=== PATIENT | male | born 1945 | race Caucasian/White ===

== ENCOUNTER → 2019-12-10 15:32 | Outpatient (BNVA) | payer OTHER, SELFPAY | PROVIDERS: Family Provider Family Medicine; PCP Family Medicine; Referring Provider Family Medicine; Visit Provider Specialist | DX: M25.562 Pain in left knee (principal); M25.561 Pain in right knee | CPT/HCPCS: 73560; 73565 ==

== ENCOUNTER 2021-10-28 15:23 | Observation (INO) | payer OTHER, MEDICARE, SELFPAY ==
[2021-10-28 15:54] VITALS: BP 129/79; PULSE 62; RESP 18; TEMP 36.6; O2SAT 97; BMI 33.6
--- NOTE | 2021-10-28 16:17 | XRR_ITS ---
PROCEDURE INFORMATION: Exam: XR Chest Exam date and time: 10/28/2021 4:31 PM Age: 76 years old Clinical indication: Cough and dyspnea; Prior surgery; Surgery type: Open heart; Additional info: Dyspnea/cough TECHNIQUE: Imaging protocol: XR of the chest. Views: 1 view. COMPARISON: CR Chest 1 [place] [id number] 01/28/2015 12:29 PM FINDINGS: Lungs: Unremarkable. No consolidation. Pleural spaces: Unremarkable. No pleural effusion. No pneumothorax. Heart/Mediastinum: Unremarkable. No cardiomegaly. Bones/joints: Sternotomy wires noted. Visualized osseous structures are intact. XR/XR chest 1V portable [id number] IMPRESSION: No acute findings.
--- NOTE | 2021-10-28 16:48 | ED_ITS ---
HPI - General Adult General: Chief complaint: General Medical Stated complaint: Has a cough Time Seen by Provider: 10/28/21 16:17 Source: patient Mode of arrival: ambulatory Limitations: no limitations History of Present Illness: 76-year-old male presents emergency room with a cough. He had gone to the [place] they would not see him because he a cough until he was screened for COVID and he was referred to the emergency room. He is not had any fever sweats chills cough is nonproductive he denies any chest pain. After arriving here patient was monitored for time and found to be extremely bradycardic on EKG he had a second-degree heart block. He did not have any chest pain he is easily fatigued. He is on a beta-cynthia at this time no change in his dose recently. Onset (ago): day(s) Severity: mild Relieving factors: none Exacerbating factors: none Associated symptoms: Reports cough and weakness; Deny chest pain, confusion, diaphoresis, decreased appetite, dyspnea, fevers/chills, headache(s), malaise, nausea, rash, palpitations, seizures, short of breath, syncope or vomiting Treatments prior to arrival: none Review of Systems Const: Denies: malaise or diaphoresis ENMT: Denies: throat pain, ear or mastoid pain, nasal discharge or nasal congestion Card: Denies: chest pain, palpitations or syncope Resp: Denies: dyspnea GI: Denies: nausea or vomiting : Denies: flank pain, dysuria, urinary frequency or urinary urgency Skin/Breast: Denies: rash Neuro: Denies: headache(s) or confusion PFS ED PFSH: Medical History Draper's cyst of knee Primary osteoarthritis of right knee Social History Smoking and tobacco status: never smoked Alcohol intake: never Physical Exam Const: COMMON NORMALS: no acute distress GENERAL APPEARANCE: cooperative and comfortable ORIENTATION/CONSCIOUSNESS: Yes awake, Yes oriented to person, Yes oriented to place and Yes oriented to time HENMT: COMMON NORMALS: normocephalic, atraumatic and hearing grossly normal bilaterally HEAD & SCALP: normocephalic and atraumatic Neck/C-Spine: COMMON NORMALS: no JVD Resp: COMMON NORMALS: normal respiratory effort, No retractions, No use of accessory muscles and clear to auscultation bilaterally AUSCULTATION: clear to auscultation bilaterally Cardio: COMMON NORMALS: no JVD and regular rhythm RATE: bradycardic RHYTHM: regular rhythm GI: COMMON NORMALS: Soft to palpation and No hepatosplenomegaly present AUSCULTATION: Yes normoactive bowel sounds PALPATION: Yes Soft to palpation, No Tenderness to palpation present (GI), No Guarding due to palpation present (GI) and Yes No hepatosplenomegaly present Extremity: COMMON NORMALS: normal to inspection, capillary refill normal, no clubbing, cyanosis or edema, no calf tenderness and no pedal edema Neuro: SENSORIUM/ORIENTATION: Yes oriented to person, Yes oriented to place and Yes oriented to time Skin: COMMON NORMALS: no rashes or lesions noted GENERAL SKIN EXAM: no rashes or lesions noted Course Vital Signs: Vital signs: Vital Signs Temperature 97.9 F 10/28/21 15:54 Pulse Rate 62 10/28/21 15:54 Respiratory Rate 18 10/28/21 15:54 Blood Pressure 129/79 10/28/21 15:54 Pulse Oximetry 97 10/28/21 15:54 MDM - General Adult Medical Decision Making Patient has significant heart block with bradycardia. We will admit the patient hold his beta-cynthia and observe discussed with cardiology also discussed with hospitalist orders are written Medical Records I reviewed the patient's medical records. Lab Data I reviewed the patient's lab results. : 10/28/21 17:15 10/28/21 17:15 Radiology Impressions Chest X-Ray 10/28/21 16:17 IMPRESSION: No acute findings. Laboratory Results Sodium Cancelled 10/28/21 17:15 Potassium Cancelled 10/28/21 17:15 Chloride Cancelled 10/28/21 17:15 Carbon Dioxide Cancelled 10/28/21 17:15 Anion Gap Cancelled 10/28/21 17:15 BUN Cancelled 10/28/21 17:15 Creatinine Cancelled 10/28/21 17:15 GFR Calculation Cancelled 10/28/21 17:15 Glucose Cancelled 10/28/21 17:15 Calculated Osmolality Cancelled 10/28/21 17:15 Calcium Cancelled 10/28/21 17:15 Total Bilirubin Cancelled 10/28/21 17:15 AST Cancelled 10/28/21 17:15 ALT Cancelled 10/28/21 17:15 Alkaline Phosphatase Cancelled 10/28/21 17:15 Troponin T Baseline Cancelled 10/28/21 17:15 Total Protein Cancelled 10/28/21 17:15 Albumin Cancelled 10/28/21 17:15 Globulin Cancelled 10/28/21 17:15 Discharge Plan Discharge Patient Disposition: Placed in Observation Clinical Impression: Mobitz type 1 second degree AV block Condition: Stable Prescriptions: No Action No Known Home Medications 0RF Referrals: Tod Isidro [Primary Care Provider] - Coding Level of Care Code ED Crop Setting Out Machine Operator for Mattg Brandie
--- NOTE | 2021-10-28 16:49 | ECG_ITS ---
[facility] Test Date: 2021-10-28 Pat Name: Aristeo José Department: Room: Gender: Male Manager Of Production: : 1945 Requested By: Diaz Chavez Order Number: [id number] Justin MD: Joan Ko M.D. Measurements Intervals [place] Rate: 44 P: DC: QRS: -9 QRSD: 90 T: 26 QT: 433 QTc: 374 Interpretive Statements SINUS BRADYCARDIA WITH 2ND DEGREE AV BLOCK, MOBITZ TYPE I (W[place]BACH) SEPTAL MYOCARDIAL INFARCTION , OF INDETERMINATE AGE [40+ ms Q WAVE IN V1/V2] INFERIOR MYOCARDIAL INFARCTION , PROBABLY OLD [40+ ms Q WAVE AND/OR ST/T ABNORMALITY IN II/aVF] CRITICAL TEST RESULT Compared to ECG 01/28/2015 11:34:41 First degree AV block no longer present Myocardial infarct finding still present Electronically Signed On 10-29-2021 7:51:27 CDT by Joan Ko M.D. [id number]
--- NOTE | 2021-10-28 17:19 | P.CONIM_ITS ---
Providers/Reason For Consult Consulting Physician/Specialty*: Oswaldo Carlin MD/ Cardiology Reason for Consult*: Bradycardia Requesting Physician: Dr Garrett Attending Physician: Dr Sanchez Primary Care Provider: Tod Isidro History of Present Illness History of Present Illness Aristeo José is a 76 year old male with past medical history of coronary artery disease and CABG, on propranolol for resting tremors presented to the emergency room mainly for cough. He feels tired at times. Cardiology was consulted as EKG showed bradycardia with heart rates in the 40s and Mobitz type I AV block. Repeat ekg showed possible Mobitz type 2 AV block. Denies chest pain Review of Systems Const: Reports: malaise; Denies: chills or body aches Eyes: Denies: change in vision ENMT: Denies: throat pain Card: Denies: chest pain Resp: Reports: productive cough (white sputum production) GI: Denies: nausea : Denies: flank pain Musc: Denies: neck pain Skin/Breast: Denies: rash Neuro: Denies: headache(s) Psych: Denies: anxiety Endo: Denies: polyuria Colin/Lymph: Denies: easy bruising All/Imm: Denies: urticaria Medications/Allergies Home Medications Medication Instructions Recorded Confirmed Last Taken Type Lantus U-100 Insulin 35 units SUBCUT BID 10/28/21 10/28/21 10/28/21 08:00 History Vitamin D3 4,000 unit PO BEDTIME 10/28/21 10/28/21 10/27/21 21:00 History amlodipine 10 mg tablet 10 mg PO DAILY 10/28/21 10/28/21 10/28/21 08:00 History atorvastatin 20 mg PO BEDTIME 10/28/21 10/28/21 10/27/21 21:00 History erythromycin 0.5 % EYE-BOTH BID 10/28/21 10/28/21 10/28/21 08:00 History finasteride 5 mg tablet 5 mg PO QPM 10/28/21 10/28/21 10/28/21 12:00 History furosemide 10 mg PO QAM 10/28/21 10/28/21 10/28/21 08:00 History glipizide 10 mg tablet See Rx Instructions .ROUTE .COMPLEX 10/28/21 10/28/21 10/28/21 12:00 History isosorbide mononitrate 60 mg 60 mg PO QAM 10/28/21 10/28/21 10/28/21 08:00 History tablet,extended release 24 hr lisinopril 20 mg tablet 20 mg PO BID 10/28/21 10/28/21 10/28/21 08:00 History loratadine 10 mg PO DAILY 10/28/21 10/28/21 10/28/21 08:00 History melatonin 6 mg PO BEDTIME 10/28/21 10/28/21 10/27/21 21:00 History mirabegron 25 mg PO BEDTIME 10/28/21 10/28/21 10/27/21 21:00 History naproxen 500 mg PO BIDWM 10/28/21 10/28/21 10/28/21 08:00 History omega 4-srl-jjn-fish oil 1,000 mg 1 cap PO DAILY 10/28/21 10/28/21 10/28/21 12:00 History (120 mg-180 mg) capsule (Fish Oil) primidone 50 mg tablet 25 mg PO QAM 10/28/21 10/28/21 10/28/21 08:00 History primidone 50 mg tablet 100 mg PO QPM 10/28/21 10/28/21 10/27/21 21:00 History propranolol 60 mg tablet 60 mg PO TID 10/28/21 10/28/21 10/28/21 12:00 History tamsulosin 0.4 mg PO QPM 10/28/21 10/28/21 10/27/21 17:00 History venlafaxine 150 mg 150 mg PO DAILY 10/28/21 10/28/21 10/28/21 08:00 History capsule,extended release 24 hr Allergies Allergy/AdvReac Type Severity Reaction Status Date / Time No Known Allergies Allergy Verified 12/10/19 15:24 PFSH Acute PFSH: Medical History (Updated 10/29/21 @ 09:43 by Oswaldo Carlin M.D) Draper's cyst of knee CAD (coronary artery disease) 3 stents Diabetes HTN (hypertension) Primary osteoarthritis of right knee Resting tremor Surgical History H/O hernia repair S/P CABG (coronary artery bypass graft) 2013 Family History Father Cancer Lung cancer Social History Smoking and tobacco status: never smoked Alcohol intake: never Vitals/I&O/Wt Last Vital Signs Temp 97.9 F 10/28/21 15:54 Pulse 62 10/28/21 15:54 Resp 18 10/28/21 15:54 BP 129/79 10/28/21 15:54 Pulse Ox 97 10/28/21 15:54 Weight last 48 hrs Weight 215 lb Physical Exam Narrative: GENERAL: Patient is alert, awake and oriented x3. [] NECK: No jugular vein distension. [] HEENT: No cyanosis. No icterus. No pallor. [] HEART: Regular S1 and S2. No murmur, rub or gallop. [] LUNGS: Clear to auscultate bilaterally. [] ABDOMEN: Soft, nontender and nondistended. Positive bowel sounds. No guarding, rebound or tenderness. [] CENTRAL NERVOUS SYSTEM: Grossly nonfocal. [] EXTREMITIES: Lower extremities with 1+ edema bilaterally. Pulses palpable in the lower extremities, both dorsalis pedis and posterior tibial. [] Data : 10/29/21 01:15 10/29/21 01:15 A&P Assessment and plan (1) Bradycardia: Status: Acute (2) CAD (coronary artery disease): Status: Acute (3) HTN (hypertension): Status: Acute Plan Patient had presented with cough. Incidentally also found to have bradycardia. EKG showing Mobitz type I and I subsequent EKG showing Mobitz type II. Hold all rate controlling agents including propranolol. Patient is asymptomatic at this time. Telemetry monitoring overnight. No indication for pacemaker at this time. Blood pressure is elevated. Uptitrate antihypertensive regimen. Thank you for involving us with care of this patient. We will continue to follow. Please call with questions. Coding Level of Care Code Acute Director Educational Radio for Shellie Diego Diagnoses Bradycardia R00.1 CAD (coronary artery disease) I25.10 HTN (hypertension) I10
[2021-10-28 17:37] LABS: Basophils % 0.5 %; Eosinophils # 0.3 10^3/uL (0.0-0.8); Eosinophils % 3.2 %; Hematocrit 46.6 % (42.0-52.0); Hemoglobin 15.8 g/dL (11.7-16.6); Lymphocytes % 25.4 %; Mean Corpuscular HGB Conc 33.9 g/dL (30.0-36.0); Mean Corpuscular Hemoglobin 29.9 pg (28.0-34.0); Mean Corpuscular Volume 88.1 fl (80-94); Monocytes # 0.9 10^3/uL (0.2-0.9); Monocytes % 11.2 %; Neutrophils # 4.75 10^3/uL (1.8-7.7); Neutrophils % 59.2 %; Nucleated Red Blood Cells % 0 %; Platelet Count 211 10^3/cmm (130-400); Red Blood Count 5.29 10^6/uL (4.1-5.3); Red Cell Distribution Width 14.6 % (12.1-15.1)
[2021-10-28 17:59] LABS: Slide Review Slide Review Perform
--- NOTE | 2021-10-28 18:11 | P.HP_ITS ---
Providers/Chief Complaint Admitting Physician: Nita Sanchez MD Primary Care Provider: Tod Isidro Chief Complaint: Has a cough History of Present Illness Aristeo José is a 76 year old male with history of CABG, 3 stents in the past, takes propanolol for resting tremors presented today for chief complaint of cough. Patient is stating that for last 2 days he has been experiencing cough, he has not noticed any fever, chest pain, nausea, vomiting but this cough has been bothering him to the point that he had to call his bxnjppsn-lw-lbe to take him to the doctor. Today they went to the ID clinic who requested him to go to the ER to rule out COVID-19 infection because of his cough. Once he arrived in the ER he was diagnosed with severe bradycardia heart rate was between 30 to 40s second-degree type I AV block, at the time my evaluation heart rate was 40-45 systolic blood pressure 129 mmHg, he is chest pain-free no shortness of breath, no signs of confusion. No signs of endorgan damage. Patient lives alone, has never smoked in his life, does not drink alcohol. F airly active for his age Recently he started mirabegron and ophthalmic drops for his red eyes At the time of evaluation he is symptom-free, hemodynamically stable heart rate 45, cardiology has been consulted, discontinue propanolol Review of Systems Const: Reports: malaise; Denies: chills or body aches Eyes: Denies: change in vision ENMT: Denies: throat pain Card: Denies: chest pain Resp: Reports: productive cough (white sputum production) GI: Denies: nausea : Denies: flank pain Musc: Denies: neck pain Skin/Breast: Denies: rash Neuro: Denies: headache(s) Psych: Denies: anxiety Endo: Denies: polyuria Colin/Lymph: Denies: easy bruising All/Imm: Denies: urticaria Medications/Allergies Home Medications Medication Instructions Recorded Confirmed Last Taken Type No Known Home Medications 12/10/19 12/10/19 Unknown History Allergies Allergy/AdvReac Type Severity Reaction Status Date / Time No Known Allergies Allergy Verified 12/10/19 15:24 PFSH Acute PFSH: Medical History Draper's cyst of knee CAD (coronary artery disease) 3 stents Diabetes HTN (hypertension) Primary osteoarthritis of right knee Resting tremor Surgical History H/O hernia repair S/P CABG (coronary artery bypass graft) 2013 Family History (Updated 10/28/21 @ 18:36 by Nita Sanchez MD) Father Cancer Lung cancer Social History Smoking and tobacco status: never smoked Alcohol intake: never Vitals/I&O/Wt Last Vital Signs Temp 97.9 F 10/28/21 15:54 Pulse 62 10/28/21 15:54 Resp 18 10/28/21 15:54 BP 129/79 10/28/21 15:54 Pulse Ox 97 10/28/21 15:54 Weight last 48 hrs Weight 97.522 kg Physical Exam Narrative: Very pleasant cooperative elderly male Currently chest pain-free S1, S2 sinus bradycardia No signs of wheezing crackles or rhonchi Saturating well on room air Bilateral conjunctivitis No active headache No blurry vision No signs of focal deficit Distended abdomen nontender Lower extremity no significant edema Pleasant and cooperative Pupils equal and symmetrical Data : 10/28/21 17:15 10/28/21 17:15 A&P Assessment and plan (1) Bradycardia: Status: Acute (2) Mobitz type 1 second degree AV block: Status: Acute (3) Bronchitis: Status: Acute (4) Redness of both eyes: Status: Acute Plan Asymptomatic bradycardia Mobitz type I Asymptomatic, hemodynamically stable Discontinue propanolol Echo, check TSH Considering coronary disease and history of CABG, would like to go with cardiac stress test, will follow cardiology recommendations We will keep him on cardiac consistent carb diet for now and n.p.o. after midnight Close monitoring on cardiac stepdown floor Will discharge him home on event monitor [facility] is vaccinated for COVID-19 For his cough I would add doxycycline for bronchitis For his red eyes we will add cetirizine and artificial eyedrops Patient is DNR/DNI Patient is not sure whether he would opt for pacemaker if that gets recommended by the telecommunicator supervisor [id number]-py-wee at the bedside Low-dose sliding scale for history of diabetes Resting tremors, discontinue propanolol, he also takes primidone Attestations Medical Necessity Statement*: Anticipating discharge within 48 hours will need work-up for bradycardia Time Spent in Patient Care: 40mins Coding Level of Care Code Acute Cleaning Supervisor for Shellie Diego Diagnoses Bradycardia R00.1 Mobitz type 1 second degree AV block I44.1 Bronchitis J40 Redness of both eyes H57.89
--- NOTE | 2021-10-28 18:27 | USCV_ITS ---
Aristeo José Age: 76 Gender: M : 1945 Exam Date: 10/28/2021 21:36 Ordering Phys: Nita Sanchez MD Technologist: SERENA Exam Location: [facility] – [place] Indication: Bradycardia BP: 131 / 73 HR: 55 Rhythm: Sinus Technical Quality: Adequate MEASUREMENTS (Male / Female) Normal Values 2D ECHO LV Diastolic Diameter PLAX 5.3 cm 4.2 - 5.9 / 3.9 - 5.3 cm LV Systolic Diameter PLAX 1.0 cm IVS Diastolic Thickness 1.3 cm 0.6 - 1.0 / 0.6 - 0.9 cm IVS Systolic Thickness 2.1 cm LVPW Diastolic Thickness 1.7 cm 0.6 - 1.0 / 0.6 - 0.9 cm LVPW Systolic Thickness 3.1 cm LVOT Diameter 1.9 cm LV Ejection Fraction 2D Teich 98.4 % LV Ejection Fraction MOD 2C 57.0 % LV Ejection Fraction 2C AL 56.3 % LA Diameter 4.7 cm LA Width 4.3 cm LA Height 6.8 cm RA Width 3.7 cm RA Height 5.1 cm Aorta at Sinotubular Diameter 3.3 cm IVC Diameter 1.3 cm M-MODE Aortic Annulus Diameter 3.2 cm LA Ao Ratio MM 1.7 MV E Point Septal Separation 0.8 cm DOPPLER AV Peak Velocity 180.8 cm/s LVOT Peak Velocity 110.0 cm/s AV Area Cont Eq vti 1.7 cm squared AV Area Cont Eq pk 1.7 cm squared MV Peak Velocity 106.0 cm/s MV Area PHT 2.3 cm squared Mitral E to A Ratio 0.7 MV E' Velocity 42.5 cm/s Mitral E to MV E' Ratio 12.8 Mitral E to LV E' Lateral Ratio 9.7 Mitral E to LV E' Septal Ratio 18.7 TR Peak Velocity 171.3 cm/s TR Peak Gradient 11.7 mmHg TR Mean Velocity 114.0 cm/s TR Mean Gradient 6.7 mmHg TR Velocity Time Integral 35.3 cm Right Atrial Pressure 10.0 mmHg Pulmonary Artery Systolic Pressu 21.7 mmHg PV Peak Velocity 123.0 cm/s RV Acceleration Time 0.1 s RV Ejection Time 0.3 s RV AcT/ET 0.3 FINDINGS Left Ventricle Normal left ventricular size. LV systolic function is normal with EF of 55-60%. No regional wall motion abnormalities. Grade 1 diastolic dysfunction Right Ventricle The right ventricle is normal in size and function. Right Atrium The right atrium is normal in size. Left Atrium The left atrium is dilated Mitral Valve Mitral annular calcification without significant stenosis or prolapse. There is trace mitral regurgitation. Aortic Valve Aortic valve is thickened without significant stenosis. There is no aortic regurgitation. Tricuspid Valve Structurally normal tricuspid valve without significant stenosis. Trace tricuspid regurgitation. Insufficient TR jet to calculate RVSP Pulmonic Valve Structurally normal pulmonic valve without significant stenosis. There is no pulmonic regurgitation. Pericardium Normal pericardium without effusion. Aorta Normal ascending aorta dimension. IVC CONCLUSIONS LV systolic function is normal with EF of 55-60% Grade 1 diastolic dysfunction Left atrium is dilated Trace mitral regurgitation Compared to prior echocardiogram from 06/04/2014, no significant changes are seen Oswaldo Carlin MD (Electronically Signed) Final Date: 29 Oct 2021 17:11 S
--- NOTE | 2021-10-28 18:28 | ECG_ITS ---
[facility] Test Date: 2021-10-29 Pat Name: Aristeo José Department: Room: 112 Gender: Male Contact Lens Technician: Tristagayatri Dyern : 1945 Requested By: Nita Sanchez Order Number: [id number] Justin MD: Joan Ko M.D. Interpretive Statements NAME OF STUDY: LEXISCAN SESTAMIBI STRESS TEST INDICATION: Bradycardia, chest pain PROCEDURE: At the baseline, the blood pressure was 197/91 mmHg with a heart rate of 62 bpm. The electrocardiogram showed normal sinus rhythm with first-degree AV block, normal axis. Possible old anteroseptal infarct. The Lexiscan was infused over a period of 20 seconds. A total of 0.4 milligrams of Lexiscan was infused. The stress phase was continued for a total of 5 minutes. Heart rate at the end of the stress phase was 71 bpm with a blood pressure of 184/89 mmHg. The EKG at the peak infusion revealed sinus rhythm with no significant ST-T wave changes. The study was terminated due to protocol completion. Sestamibi was injected 20 seconds after the Lexiscan infusion. Blood pressure at the end of the recovery phase was 189/88 mmHg with a heart rate of 71 beats per minute. Frequent isolated PVCs noted in recovery. CONCLUSION: 1. No significant EKG changes with the LexiScan infusion. 2. No LexiScan induced chest pain or cardiac arrhythmia. 3. Normal blood pressure and heart rate response. 4. Sestamibi/sestamibi perfusion scan pending; see separate report. Electronically Signed On 10-29-2021 12:32:20 CDT by Joan Ko M.D. [id number]
--- NOTE | 2021-10-28 18:49 | ECG_ITS ---
[facility] Test Date: 2021-10-28 Pat Name: Aristeo José Department: Room: 111 Gender: Male Manager Integrated: : 1945 Requested By: Diaz Chavez Order Number: [id number] Justin MD: Joan Ko M.D. Measurements Intervals [place] Rate: 55 P: -59 [place]: 297 QRS: -10 QRSD: 84 T: 11 QT: 415 QTc: 397 Interpretive Statements SINUS BRADYCARDIA WITH FIRST DEGREE AV BLOCK SEPTAL MYOCARDIAL INFARCTION , OF INDETERMINATE AGE [40+ ms Q WAVE IN V1/V2] INFERIOR MYOCARDIAL INFARCTION , PROBABLY OLD [40+ ms Q WAVE AND/OR ST/T ABNORMALITY IN II/aVF] Compared to ECG 10/28/2021 16:56:48 First degree AV block now present Myocardial infarct finding still present Electronically Signed On 10-29-2021 7:58:18 CDT by Joan Ko M.D. [email or web address] [email or web address] LLCoh[facility].[employer]/store/[id number]
[2021-10-28 18:50] VITALS: BP 202/82; PULSE 50; RESP 15; O2SAT 97
[2021-10-28 19:00] LABS: Troponin(5th) Baseline 19 ng/L (0-15)
[2021-10-28 19:08] LABS: NT Pro B Type Natriuretic Pept 177 pg/mL (0-450); Procalcitonin 0.03 ng/mL (0-0.5)
[2021-10-28 19:19] LABS: Alanine Aminotransferase 23 U/L (0-41); Alkaline Phosphatase 121 IU/L (40-130); Anion Gap 16.3 (5-19); Aspartate Amino Transferase 20 U/L (0-40); Blood Urea Nitrogen 29 mg/dL (8-23); Calcium 9.3 mg/dL (8.5-10.5); Carbon Dioxide 23 mmol/L (22-29); Chloride 99 mmol/L (98-107); Globulin 3.7 g/dL (1.3-4.6); Glucose 73 mg/dL (65-115); Osmolality Calculated 282 mOsm/kg (285-295); Potassium 4.3 mmol/L (3.5-5.1); Sodium 134 mmol/L (136-145); Total Bilirubin 0.4 mg/dL (0.15-1.2); Total Protein 7.7 g/dL (6.6-8.7)
[2021-10-28 20:00] VITALS: BP 175/70; PULSE 55; RESP 11; TEMP 36.7; O2SAT 97
[2021-10-28] MEDS: enoxaparin 40 mg/0.4 mL Syringe SUBCUT (20:46)
[2021-10-28] MEDS: doxycycline 100 mg Tablet PO (20:46)
[2021-10-28 21:15] LABS: Glucose Point of Care 139 mg/dL (70-110)
[2021-10-28 21:21] VITALS: PULSE 58; RESP 16; O2SAT 95
[2021-10-28 22:00] VITALS: BP 131/73; PULSE 55; PULSE 56; RESP 20; O2SAT 92
[2021-10-28 22:21] LABS: Troponin 5 2HR 16.22 ng/L (0-15)
[2021-10-28 22:26] LABS: Troponin 5 2HR Delta -2.78 ABS# (0-10)
--- NOTE | 2021-10-28 22:49 | ECG_ITS ---
[facility] Test Date: 2021-10-29 Pat Name: Aristeo José Department: Room: 112 Gender: Male Vp Legal Affairs: : 1945 Requested By: Diaz Chavez Order Number: [id number] Justin MD: Oswaldo Carlin M.D. Measurements Intervals [place] Rate: 53 P: TN: QRS: -12 QRSD: 96 T: 1 QT: 399 QTc: 377 Interpretive Statements SINUS BRADYCARDIA WITH 2ND DEGREE AV BLOCK, 2:1 OR MOBITZ TYPE II INFERIOR MYOCARDIAL INFARCTION , PROBABLY OLD [40+ ms Q WAVE AND/OR ST/T ABNORMALITY IN II/aVF] Compared to ECG 10/28/2021 21:07:31 First degree AV block no longer present Myocardial infarct finding still present Electronically Signed On 10-29-2021 17:21:24 CDT by Oswaldo Carlin M.D. [email or web address]/[id number]
[2021-10-28] MEDS: insulin glargine 100 units/1 mL 20 UNIT SUBCUT (23:06)
[2021-10-29] VITALS (10 sets, daily range): BP systolic 136–196; BP diastolic 61–103; PULSE 45–97; RESP 14–22; TEMP 36.6–37.4; O2SAT 88–97
[2021-10-29 01:26] LABS: Basophils % 0.4 %; Eosinophils # 0.3 10^3/uL (0.0-0.8); Eosinophils % 3.5 %; Hematocrit 43.5 % (42.0-52.0); Lymphocytes # 2.4 10^3/uL (0.8-4.8); Lymphocytes % 28.4 %; Mean Corpuscular HGB Conc 34.5 g/dL (30.0-36.0); Mean Corpuscular Hemoglobin 31.1 pg (28.0-34.0); Mean Corpuscular Volume 90.2 fl (80-94); Monocytes # 0.9 10^3/uL (0.2-0.9); Monocytes % 10.5 %; Neutrophils # 4.75 10^3/uL (1.8-7.7); Neutrophils % 56.7 %; Nucleated Red Blood Cells % 0 %; Platelet Count 229 10^3/cmm (130-400); Red Blood Count 4.82 10^6/uL (4.1-5.3); Red Cell Distribution Width 14.6 % (12.1-15.1); White Blood Count 8.4 10^3/uL (4.0-10.0)
[2021-10-29 01:41] LABS: Anion Gap 13.6 (5-19); Blood Urea Nitrogen 28 mg/dL (8-23); Calcium 8.9 mg/dL (8.5-10.5); Carbon Dioxide 25 mmol/L (22-29); Chloride 100 mmol/L (98-107); Glucose 198 mg/dL (65-115); Magnesium 1.9 mg/dL (1.7-2.3); Osmolality Calculated 291 mOsm/kg (285-295); Potassium 3.6 mmol/L (3.5-5.1); Sodium 135 mmol/L (136-145)
[2021-10-29 01:43] LABS: Troponin 5 6HR 21.44 ng/L (0-15)
[2021-10-29 01:49] LABS: Troponin 5 6HR Delta 2.44 ng/L (0-12)
[2021-10-29 06:38] LABS: Glucose Point of Care 136 mg/dL (70-110)
[2021-10-29] MEDS: regadenoson 0.4 Mg/5 ml Syringe IVP (07:46)
--- NOTE | 2021-10-29 09:11 | PC.NURSE ---
Informed nurse BP was high.
[2021-10-29] MEDS: cetirizine 10 mg Tablet PO (09:24)
[2021-10-29] MEDS: doxycycline 100 mg Tablet PO (09:24)
[2021-10-29] MEDS: lisinopril 20 mg Tablet PO (09:24)
[2021-10-29] MEDS: amlodipine 5 mg Tablet PO (09:24)
--- NOTE | 2021-10-29 09:45 | PM.PN ---
Subjective Subjective: Patient is doing well. heart rate is normal Vitals/I&O/Wt Last Vital Signs Temp 98.2 F 10/29/21 09:10 Pulse 61 10/29/21 09:10 Resp 16 10/29/21 09:10 BP 196/103 10/29/21 09:10 Pulse Ox 97 10/29/21 09:10 10/28/21 10/29/21 10/29/21 22:59 06:59 14:59 Intake Total 240 / 240 Balance 240 / 240 Weight last 48 hrs Weight 215 lb Physical Exam Narrative: GENERAL: Patient is alert, awake and oriented x3. [] NECK: No jugular vein distension. [] HEENT: No cyanosis. No icterus. No pallor. [] HEART: Regular S1 and S2. No murmur, rub or gallop. [] LUNGS: Clear to auscultate bilaterally. [] ABDOMEN: Soft, nontender and nondistended. Positive bowel sounds. No guarding, rebound or tenderness. [] CENTRAL NERVOUS SYSTEM: Grossly nonfocal. [] EXTREMITIES: Lower extremities with 1+ edema bilaterally. Pulses palpable in the lower extremities, both dorsalis pedis and posterior tibial. [] Data : 10/29/21 01:15 10/29/21 01:15 A&P Assessment and plan (1) Bradycardia: Status: Resolved (2) CAD (coronary artery disease): (3) HTN (hypertension): Status: Acute Plan Patient had presented with cough. Incidentally also found to have bradycardia. EKG showing Mobitz type I and I subsequent EKG showing Mobitz type II. Hold all rate controlling agents including propranolol. Patient has stayed asymptomatic. Heart rate has improved. No indication for pacemaker at this time. Blood pressure is elevated. Uptitrate antihypertensive regimen. Thank you for involving us with care of this patient. Outpatient follow up. Please call with questions. Attestations Medical Necessity Statement*: Care expected to cross 2 midnights. Coding Level of Care Code Acute Folder Gluer Operator for Shellie Diego Diagnoses Bradycardia R00.1 CAD (coronary artery disease) I25.10 HTN (hypertension) I10
--- NOTE | 2021-10-29 10:28 | PC.CHAP ---
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 visit [] Patient/Family/Request visit [] Outpatient visit [] Follow-up visit [] Physician referral [] Code/Alert [x] Routine visit [] Staff referral [] Actively dying [] Patient sleeping [] Family support [] [] Out of room [] Palliative care [] [x] Receiving care in room [] Pre-surgical visit [] Trauma [] Long length of stay [] ICU visit [] Other: Relational/Emotional Strength [x] Patient feels connected with others/family/visitors/staff [] Distress [] Loneliness/isolation [] Abandonment Spirituality of Patient [x] Person of Karen [] Attends Zoroastrianism of their Karen [x] Believes in Prayer [] Reads Bible or Mandaeism materials [] There are Spiritual issues to be addressed 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 Interventions [x] Prayer [x] Active listening [x] Non-anxious presence [x] Spiritual/emotional support [] Crisis/trauma care [x] Spiritual counseling [] Bereavement support [] Provided bereavement packet [] Provided Bible/devotional materials [] Provided toy/stuffed animal, coloring book to patient or family member [] Provided Communion [] Anointing/Palmer [] Salvation [x] Completed spiritual assessment [] Other: Impact on Illness or Injury [] Angry [] Fearful [x] Anxious [] Often cries [] Exhaustion [] Unable to work [] Unable to attend jew [] Unable to walk/stand [] Unable to read [] Unable to drive [] Unable to eat/drink [] Unable to sleep [] Unable to be with family [] Patient intubated [] Other: Summary Senior had mihaela bauer on doctors report has a good attitude well be going home Time spent with patient 10 mins
--- NOTE | 2021-10-29 11:12 | P.DS_ITS ---
Discharge Providers Date of Admission: 10/28/21 18:29 Date of Discharge: October 29, 2021 Attending Provider at Admission: Nita Sanchez MD Attending Provider at Discharge: Nita Sanchez MD Primary Care Provider: Tod Isidro Diagnoses at Discharge Discharge Diagnosis (1) Bradycardia: Status: Acute (2) CAD (coronary artery disease): Status: Acute Permanent problem details: 3 stents (3) HTN (hypertension): Status: Acute Reason for Visit Reason for Visit: Has a cough Hospital Course Hospital Course 76-year-old gentleman who presented from [place] clinic for chief complaint of productive cough. He denied fever, chest pain, shortness of breath, orthopnea and PND. No previous history of presyncopal or syncopal events. In the ER he was diagnosed with Mobitz type I second-degree AV block, his propranolol was discontinued. Overnight his heart rate improved, heart rate range on telemetry 55-61, cardiology was consulted at the time of admission, patient will be discharged on event monitor, Echo report:-Echo shows normal EF with mild TR Stress test results:-Unremarkable Patient has been hypertensive, added hydralazine, at home he takes amlodipine 10 mg lisinopril 40 mg, propanolol 3 times daily, Physical Exam Narrative: Pleasant cooperative early male No active chest pain S1, S2 sinus bradycardia Abdomen soft visceral obesity Very hard of hearing Nonfocal neuro exam Saturating well on room air Discharge Data Studies Completed and Pending Completed Studies During Hospitalization Category Date Time Status Sestamibi Stress Test Request Routine Exams 10/28/21 18:28 Draft XR chest 1V portable [id number] Stat Exams 10/28/21 16:17 Completed Pending at discharge Category Date Time Status Urinalysis Stat Lab 10/28/21 16:49 Uncollected NM yvette perf SPECT r/s* [id number] Routine Nuc Med 10/29/21 18:28 Taken CV. echo complete* [id number] Routine Ultrasound 10/28/21 18:27 Taken Radiology Impressions Chest X-Ray 10/28/21 16:17 IMPRESSION: No acute findings. Laboratory Results WBC 8.4 10^3/uL (4.0-10.0) 10/29/21 01:15 RBC 4.82 10^6/uL (4.1-5.3) 10/29/21 01:15 Hgb 15.0 g/dL (11.7-16.6) 10/29/21 01:15 Hct 43.5 % (42.0-52.0) 10/29/21 01:15 MCV 90.2 fl (80-94) 10/29/21 01:15 MCH 31.1 pg (28.0-34.0) 10/29/21 01:15 MCHC 34.5 g/dL (30.0-36.0) 10/29/21 01:15 RDW 14.6 % (12.1-15.1) 10/29/21 01:15 Plt Count 229 10^3/cmm (130-400) 10/29/21 01:15 MPV 10.0 fL (7.4-10.4) 10/29/21 01:15 Neut % (Auto) 56.7 % 10/29/21 01:15 Lymph % (Auto) 28.4 % 10/29/21 01:15 [place] % (Auto) 10.5 % 10/29/21 01:15 Eos % (Auto) 3.5 % 10/29/21 01:15 Baso % (Auto) 0.4 % 10/29/21 01:15 Neut # (Auto) 4.75 10^3/uL (1.8-7.7) 10/29/21 01:15 Lymph # (Auto) 2.4 10^3/uL (0.8-4.8) 10/29/21 01:15 [place] # (Auto) 0.9 10^3/uL (0.2-0.9) 10/29/21 01:15 Eos # (Auto) 0.3 10^3/uL (0.0-0.8) 10/29/21 01:15 Baso # (Auto) 0.0 10^3/uL (0.0-0.1) 10/29/21 01:15 Nucleated RBC % (auto) 0 % 10/29/21 01:15 Nucleated RBCs # 0.0 /100WBC 10/29/21 01:15 Sodium 135 mmol/L (136-145) L 10/29/21 01:15 Potassium 3.6 mmol/L (3.5-5.1) 10/29/21 01:15 Chloride 100 mmol/L (98-107) 10/29/21 01:15 Carbon Dioxide 25 mmol/L (22-29) 10/29/21 01:15 Anion Gap 13.6 (5-19) 10/29/21 01:15 BUN 28 mg/dL (8-23) H 10/29/21 01:15 Creatinine 1.1 mg/dL (0.7-1.2) 10/29/21 01:15 GFR Calculation Not Reportable 10/29/21 01:15 Glucose 198 mg/dL (65-115) H 10/29/21 01:15 POC Glucose 136 mg/dL (70-110) H 10/29/21 06:36 Calculated Osmolality 291 mOsm/kg (285-295) 10/29/21 01:15 Calcium 8.9 mg/dL (8.5-10.5) 10/29/21 01:15 Magnesium 1.9 mg/dL (1.7-2.3) 10/29/21 01:15 Total Bilirubin 0.4 mg/dL (0.15-1.2) 10/28/21 18:26 AST 20 U/L (0-40) 10/28/21 18:26 ALT 23 U/L (0-41) 10/28/21 18:26 Alkaline Phosphatase 121 IU/L (40-130) 10/28/21 18:26 Troponin T Baseline 19 ng/L (0-15) H 10/28/21 18:26 Troponin T 120 Minute 16.22 ng/L (0-15) H 10/28/21 21:07 Delta Troponin T -2.78 ABS# (0-10) L 10/28/21 21:07 Troponin T Hi Sens 6Hr 21.44 ng/L (0-15) H 10/29/21 01:15 Troponin T Hi Sens 6Hr Delta 2.44 ng/L (0-12) 10/29/21 01:15 NT-Pro-B Natriuret Pep 177 pg/mL (0-450) 10/28/21 18:26 Total Protein 7.7 g/dL (6.6-8.7) 10/28/21 18:26 Albumin 4.0 g/dL (3.5-5.2) 10/28/21 18:26 Globulin 3.7 g/dL (1.3-4.6) 10/28/21 18:26 Procalcitonin 0.03 ng/mL (0-0.5) 10/28/21 18:26 Procalcitonin Cancelled 10/28/21 18:26 Vitals Last Vital Signs Temp 98.2 F 10/29/21 09:10 Pulse 61 10/29/21 09:10 Resp 16 10/29/21 09:10 BP 196/103 10/29/21 09:10 Pulse Ox 97 10/29/21 09:10 Discharge Plan Discharge Patient Disposition: Home Condition: Stable Prescriptions: New doxycycline hyclate 100 mg tablet 100 mg PO BID 3 Days Qty: 6 0RF Continued furosemide 10 mg PO QAM 0RF primidone 50 mg Tablet 25 mg PO QAM 0RF primidone 50 mg Tablet 100 mg PO QPM 0RF glipizide 10 mg Tablet See Rx Instructions .ROUTE .COMPLEX 0RF Rx Instructions: 10 mg orally at breakfast and lunch Lantus U-100 Insulin 35 units SUBCUT BID 0RF Vitamin D3 4,000 unit PO BEDTIME 0RF atorvastatin 20 mg PO BEDTIME 0RF erythromycin ointment 0.5 % eye-both BID 0RF Rx Instructions: x7d, began 10/26/2021 loratadine 10 mg PO DAILY 0RF melatonin 6 mg PO BEDTIME 0RF mirabegron 25 mg PO BEDTIME 0RF naproxen 500 mg PO BIDWM 0RF tamsulosin 0.4 mg PO QPM 0RF lisinopril 20 mg Tablet 20 mg PO BID 0RF venlafaxine 150 mg Capsule,Extended Release 24hr 150 mg PO DAILY 0RF isosorbide mononitrate 60 mg Tablet Extended Release 24 Hr 60 mg PO QAM 0RF amlodipine 10 mg Tablet 10 mg PO DAILY 0RF finasteride 5 mg Tablet 5 mg PO QPM 0RF Fish Oil 1,000 mg (120 mg-180 mg) Capsule 1 cap PO DAILY 0RF Discontinued propranolol 60 mg Tablet 60 mg PO TID 0RF Discharge Orders: Discharge Order (Routine); Ordered 10/29/21 Ordered By: Nita Sanchez Other Ambulatory Orders: MCT/Event Monitor 30 Days (Routine) Timeframe: 30 Days Facility: [facility] - Location: Radiology Ordered By: Nita Sanchez MCT/Event Monitor 7 Days (Routine) Timeframe: 30 Days Facility: [facility] - Location: Radiology Ordered By: Nita Sanchez Referrals: Oswaldo Carlin M.D [Physician] - 11/06/21 9:45 am (You have a cardiology followup with Dr. Carlin at [facility] on November 06 ar 9:45am You have a appointment at [facility] [place] on This Coming TuesdayNovember 02 at 2:45pm to be fitted with an Event Monitor.) Tod Isidro [Primary Care Provider] - 1-3 days ([facility] will be calling to schedule a hospital followup with Dr. Isidro to be seen in 1 to 3 days. If you don't hear from them by tomorrowafternoon, please give them a call. Thank you) Discharge Diet: Cardiac Discharge Activity: Increase activity as tolerated Patient Instructions: Doxycycline (By mouth) (Acticlate, Adoxa, Avidoxy, Monodox, Doryx), Opioid Safety Activity Restrictions/Additional Instructions: You have a appointment at [facility] on This Coming TuesdayNovember 02 at 2:45pm to be fitted with an Event Monitor. Discharge Attestations 2 Time Spent in Discharge Care*: less than 30 min Quality Metrics Clinical Quality Measures [ No reported AMI, CVA or VTE this stay] Coding Level of Care Code Acute Chg FW DC note Diagnoses Bradycardia R00.1 CAD (coronary artery disease) I25.10 HTN (hypertension) I10
[2021-10-29 11:39] LABS: Glucose Point of Care 256 mg/dL (70-110)
[2021-10-29] MEDS: hyDRALAzine 20 mg/mL INJ 1 mL 10 MG IVP (12:16)
--- NOTE | 2021-10-29 13:12 | DCPLANNER ---
[facility] to [facility] with out success< I did my weekend routine and [facility]
--- NOTE | 2021-10-29 18:28 | NMCV_ITS ---
NM yvette perf SPECT r/s* [id number] Aristeo José Age: 76 Gender: M : 1945 Exam Date: 10/29/2021 06:59 Ordering Phys: Nita Sanchez MD Technologist: PÉREZ Mullins Exam Location: [facility] Indications: CHEST PAIN STRESS TEST Please see separate stress test report in [facility] for full findings IMAGE PROTOCOL Rest/Stress 1 Lexiscan Day Radiopharmaceutical Dose (mCi) Administration Site Administered by Rest: Tc-99m 10.6 IV PÉREZ Hong Sestamibi Stress:Tc-99m 32.9 IV PÉREZ Hong Sestamibi Rest: 29-Oct-2021 60 Discovery 630 Stress: 29-Oct-2021 30 Discovery 630 0.4mg Lexiscan. Images obtained in supine and prone position. SPECT RESULTS Technical Quality: Excellent Raw Data Analysis: Normal Image Corrections: No attenuation or motion correction applied Summed Stress Score: 0 Summed Rest Score: 3 Summed Difference Score: 0 PERFUSION FINDINGS Small sized perfusion of mid to apical inferolateral sen on rest images with improved tracer uptake on stress images. This is suggestive of attenuation artifact. FUNCTIONAL RESULTS (calculated via Gated SPECT) Stress Image LV EF (%): 60 Stress EDV (mL):119 TID: 0.99 Stress ESV (mL):48 FUNCTIONAL FINDINGS: The left ventricle is normal in size. Transient Ischemia Dilatation of 0.99. There is normal left ventricular systolic function. The left ventricular ejection fraction is normal with a value of 60%. There is normal left ventricular wall thickening with no regional wall motion abnormality. Normal end-diastolic and end-systolic volumes. IMPRESSIONS 1. Myocardial perfusion imaging is normal. Attenuation artifact noted in inferolateral wall. 2. Overall left ventricular systolic function is normal without regional wall motion abnormalities, (LVEF=60%). 3. No EKG changes with Lexiscan infusion. Refer to separate report for details. 4. Scan indicates low risk for cardiac events. Joan Ko MD (Electronically Signed) Final Date: 29 Oct 2021 12:36 S
== END 2021-10-29 15:45 | disposition home or self-care (01) ==
LOC: ER 17:50 → CSU 18:07
PROVIDERS: Admitting Provider Internal Medicine; Emergency Provider Family Medicine; Family Provider Family Medicine; PCP Family Medicine; Visit Provider Internal Medicine
DX: I44.1 Atrioventricular block, second degree (principal); R00.1 Bradycardia, unspecified; I25.10 Atherosclerotic heart disease of native coronary artery without angina pectoris; I10 Essential (primary) hypertension; Z95.5 Presence of coronary angioplasty implant and graft; M17.11 Unilateral primary osteoarthritis, right knee; Z95.1 Presence of aortocoronary bypass graft; J40 Bronchitis, not specified as acute or chronic; Z79.4 Long term (current) use of insulin; H57.89 Other specified disorders of eye and adnexa
CPT/HCPCS: 36415; 36416; 71045; 78452; 80048; 80053; 82962; 83735; 83880; 84145; 84484; 85025; 93005; 93017; 93306; 96372; 96374; 99285; A9500; G0378; J0360; J1650; J1815; J2785

== ENCOUNTER → 2021-11-02 14:20 | Outpatient (BNVA) | payer OTHER, MEDICARE, SELFPAY | PROVIDERS: Family Provider Family Medicine; PCP Family Medicine; Visit Provider Internal Medicine Cardiovascular Disease | DX: I44.1 Atrioventricular block, second degree (principal); I44.2 Atrioventricular block, complete; R00.0 Tachycardia, unspecified; R00.1 Bradycardia, unspecified | CPT/HCPCS: 93229 ==

== ENCOUNTER → 2021-11-06 09:18 | Outpatient (BNVA) | payer OTHER, SELFPAY ==
--- NOTE | 2021-11-15 18:57 | W.PM.EVENTAC ---
Event Note Event Note: I was called by the telemetry company to notify me regarding second degree AV block, I called three different numbers and finally got a hold off his daughter in law. I have recommended Mr José to come to the ER for Pacemaker evaluation Mr José did complaint of weakness and lethargy to his famiy ER UPDATED
== END ==
PROVIDERS: Family Provider Family Medicine; PCP Family Medicine; Visit Provider Internal Medicine
DX: I44.1 Atrioventricular block, second degree (principal); I10 Essential (primary) hypertension; E11.9 Type 2 diabetes mellitus without complications; Z79.4 Long term (current) use of insulin
CPT/HCPCS: 99214

== ENCOUNTER 2021-11-15 19:50 | Inpatient (IN) | payer OTHER, MEDICARE, SELFPAY ==
[2021-11-15 20:00] VITALS: BP 179/88; PULSE 76; RESP 18; TEMP 36.9; O2SAT 97
[2021-11-15 20:17] VITALS: BP 138/72; PULSE 67; RESP 18; O2SAT 98
--- NOTE | 2021-11-15 20:17 | XRR_ITS ---
PROCEDURE INFORMATION: Exam: XR Chest Exam date and time: 11/15/2021 8:49 PM Age: 76 years old Clinical indication: Other: Weakness; Prior surgery; Surgery date: 6+ months; Surgery type: Cabg TECHNIQUE: Imaging protocol: XR of the chest. Views: 1 view. COMPARISON: CR XR chest 1V portable [id number] 10/28/2021 4:31 PM FINDINGS: Lungs: Unremarkable. No consolidation. Pleural spaces: Unremarkable. No pleural effusion. No pneumothorax. Heart/Mediastinum: Unremarkable. No cardiomegaly. Bones/joints: Sternotomy wires. XR/XR chest 1V portable [id number] IMPRESSION: Lungs are clear
--- NOTE | 2021-11-15 20:17 | ECG_ITS ---
[facility] Test Date: 2021-11-15 Pat Name: Aristeo José Department: Room: Gender: Male Pharmacy Student: : 1945 Requested By: Vivek Ramos Order Number: [id number] Justin MD: Garcia Moore M.D. Measurements Intervals [place] Rate: 69 P: 25 MI: 293 QRS: -8 QRSD: 93 T: 168 QT: 353 QTc: 378 Interpretive Statements SINUS RHYTHM WITH FIRST DEGREE AV BLOCK INFERIOR MYOCARDIAL INFARCTION , PROBABLY OLD [40+ ms Q WAVE AND/OR ST/T ABNORMALITY IN II/aVF] ANTEROSEPTAL MYOCARDIAL INFARCTION , OF INDETERMINATE AGE [40+ ms Q WAVE IN V1-V4] Compared to ECG 10/29/2021 00:17:12 First degree AV block now present Sinus bradycardia no longer present Myocardial infarct finding still present Electronically Signed On 11-16-2021 16:21:05 CDT by Garcia Moore M.D. [email or web address]
--- NOTE | 2021-11-15 20:20 | ED_ITS ---
HPI - General Adult General: Chief complaint: General Medical Stated complaint: Dr sent due to hear monitor Time Seen by Provider: 11/15/21 19:53 Source: patient History of Present Illness: 76-year-old gentleman who had a loop recorder placed back on 11/02. Hospitalist physician who wrote the order received a call this evening that the patient may be a type II second-degree block. The patient was called and urged to come in. He presents with no specific complaints. He notes that he was more tired this morning, and generally weak. He is not overly short of breath. There is no history of chest pain. Onset (ago): hour(s) Radiation: non-radiation Pain Consistency: other Relieving factors: none Associated symptoms: Reports malaise and weakness (generalized); Deny chest pain, confusion, cough, dyspnea, fevers/chills, headache(s), nausea, short of breath or vomiting Review of Systems Const: Reports: malaise Card: Denies: chest pain Resp: Denies: dyspnea GI: Denies: nausea or vomiting Neuro: Denies: headache(s) or confusion PFSH ED PFSH: Medical History Draper's cyst of knee CAD (coronary artery disease) 3 stents Diabetes HTN (hypertension) Primary osteoarthritis of right knee Redness of both eyes Resting tremor Surgical History H/O hernia repair S/P CABG (coronary artery bypass graft) 2014 Family History Father Cancer Lung cancer Social History Smoking and tobacco status: never smoked Alcohol intake: never Physical Exam Const: GENERAL APPEARANCE: cooperative and frail appearing HENMT: COMMON NORMALS: normocephalic and Normal external nose present HEAD & SCALP: normocephalic FACE & SINUS: normal facial exam and face symmetric NOSE: Normal external nose present Eye: COMMON NORMALS: Equal, round and reactive pupils present PUPIL: Yes Equal, round and reactive pupils present Chest: CHEST: Yes Symmetrical chest wall rise Resp: COMMON NORMALS: normal respiratory effort, No use of accessory muscles and clear to auscultation bilaterally AUSCULTATION: clear to auscultation bilaterally Cardio: COMMON NORMALS: regular rate, regular rhythm and Peripheral pulses 2+ throughout RATE: regular rate RHYTHM: regular rhythm PERIPHERAL PULSES: Peripheral pulses 2+ throughout GI: COMMON NORMALS: Soft to palpation PALPATION: Yes Soft to palpation Extremity: COMMON NORMALS: no pedal edema Neuro: SEMAJ COMA SCALE: document GCS findings Semaj coma scale eye opening: Spontaneous Semaj coma scale verbal response: Orientated Semaj coma scale motor response: Obey commands Semaj coma scale total score: 15 Course Vital Signs: Vital signs: Vital Signs Temperature 98.2 F 11/18/21 08:00 Pulse Rate 89 11/18/21 10:39 Respiratory Rate 20 H 11/18/21 10:39 Blood Pressure 126/68 11/18/21 10:39 Pulse Oximetry 95 11/18/21 10:39 [facility] - General Adult Medical Decision Making 76-year-old gentleman with a history of Holter placement. They were called regarding concern of a second-degree type II heart block. There may have been a short episode of third-degree heart block. Currently, he is in a type I heart block on the monitor, and by EKG. His heart rate is 60-65. Blood pressure is normal. He is awake and talking. CBC is normal. BMP is normal. His phosphorus is 3.8, magnesium is 1.9. Baseline troponin is 25. Chest x-ray is normal. Spoke with cardiology. Recommendations are telemetry observation, and reevaluation in the morning for potential for need for pacemaker placement. Spoke with hospitalist who agrees. Lab Data : 11/18/21 02:11 11/18/21 02:11 Radiology Impressions Chest X-Ray 11/18/21 06:00 IMPRESSION: No acute cardiopulmonary abnormality identified. Laboratory Results WBC 5.8 10^3/uL (4.0-10.0) 11/15/21 20:58 RBC 5.17 10^6/uL (4.1-5.3) 11/15/21 20:58 Hgb 15.8 g/dL (11.7-16.6) 11/15/21 20:58 Hct 46.2 % (42.0-52.0) 11/15/21 20:58 MCV 89.4 fl (80-94) 11/15/21 20:58 MCH 30.6 pg (28.0-34.0) 11/15/21 20:58 MCHC 34.2 g/dL (30.0-36.0) 11/15/21 20:58 RDW 14.2 % (12.1-15.1) 11/15/21 20:58 Plt Count 206 10^3/cmm (130-400) 11/15/21 20:58 MPV 10.3 fL (7.4-10.4) 11/15/21 20:58 Neut % (Auto) 50.8 % 11/15/21 20:58 Lymph % (Auto) 31.3 % 11/15/21 20:58 [place] % (Auto) 13.2 % 11/15/21 20:58 Eos % (Auto) 4.0 % 11/15/21 20:58 Baso % (Auto) 0.5 % 11/15/21 20:58 Neut # (Auto) 2.93 10^3/uL (1.8-7.7) 11/15/21 20:58 Lymph # (Auto) 1.8 10^3/uL (0.8-4.8) 11/15/21 20:58 [place] # (Auto) 0.8 10^3/uL (0.2-0.9) 11/15/21 20:58 Eos # (Auto) 0.2 10^3/uL (0.0-0.8) 11/15/21 20:58 Baso # (Auto) 0.0 10^3/uL (0.0-0.1) 11/15/21 20:58 Nucleated RBC % (auto) 0 % 11/15/21 20:58 Nucleated RBCs # 0.0 /100WBC 11/15/21 20:58 Sodium 133 mmol/L (136-145) L 11/15/21 20:58 Potassium 4.2 mmol/L (3.5-5.1) 11/15/21 20:58 Chloride 98 mmol/L (98-107) 11/15/21 20:58 Carbon Dioxide 25 mmol/L (22-29) 11/15/21 20:58 Anion Gap 14.2 (5-19) 11/15/21 20:58 BUN 26 mg/dL (8-23) H 11/15/21 20:58 Creatinine 1.2 mg/dL (0.7-1.2) 11/15/21 20:58 GFR Calculation Not Reportable 11/15/21 20:58 Glucose 149 mg/dL (65-115) H 11/15/21 20:58 Calculated Osmolality 284 mOsm/kg (285-295) L 11/15/21 20:58 Calcium 9.7 mg/dL (8.5-10.5) 11/15/21 20:58 Phosphorus 3.8 mg/dL (2.5-4.5) 11/15/21 20:58 Magnesium 1.9 mg/dL (1.7-2.3) 11/15/21 20:58 Total Bilirubin 0.4 mg/dL (0.15-1.2) 11/15/21 20:58 AST 23 U/L (0-40) 11/15/21 20:58 ALT 32 U/L (0-41) 11/15/21 20:58 Alkaline Phosphatase 131 IU/L (40-130) H 11/15/21 20:58 Troponin T Baseline 25 ng/L (0-15) H 11/15/21 20:58 NT-Pro-B Natriuret Pep 72 pg/mL (0-450) 11/15/21 20:58 Total Protein 7.0 g/dL (6.6-8.7) 11/15/21 20:58 Albumin 4.3 g/dL (3.5-5.2) 11/15/21 20:58 Globulin 2.7 g/dL (1.3-4.6) 11/15/21 20:58 Discharge Plan Discharge Patient Disposition: Placed in Observation Admit Provider: Linwood Bartlett Clinical Impression: Bradycardia Discharge Diet: Cardiac Discharge Activity: Increase activity as tolerated and Limit activity as instr ucted Coding Level of Care Code ED Powertrain Control Systems Engineer for Mattg Fwd Exam Comprehensive
[2021-11-15 21:03] LABS: Basophils % 0.5 %; Eosinophils # 0.2 10^3/uL (0.0-0.8); Hematocrit 46.2 % (42.0-52.0); Hemoglobin 15.8 g/dL (11.7-16.6); Lymphocytes # 1.8 10^3/uL (0.8-4.8); Lymphocytes % 31.3 %; Mean Corpuscular HGB Conc 34.2 g/dL (30.0-36.0); Mean Corpuscular Hemoglobin 30.6 pg (28.0-34.0); Mean Corpuscular Volume 89.4 fl (80-94); Mean Platelet Volume 10.3 fL (7.4-10.4); Monocytes # 0.8 10^3/uL (0.2-0.9); Monocytes % 13.2 %; Neutrophils # 2.93 10^3/uL (1.8-7.7); Neutrophils % 50.8 %; Nucleated Red Blood Cells % 0 %; Platelet Count 206 10^3/cmm (130-400); Red Blood Count 5.17 10^6/uL (4.1-5.3); Red Cell Distribution Width 14.2 % (12.1-15.1); White Blood Count 5.8 10^3/uL (4.0-10.0)
[2021-11-15 21:26] LABS: Troponin(5th) Baseline 25 ng/L (0-15)
[2021-11-15 21:35] LABS: Alanine Aminotransferase 32 U/L (0-41); Albumin Level 4.3 g/dL (3.5-5.2); Alkaline Phosphatase 131 IU/L (40-130); Anion Gap 14.2 (5-19); Aspartate Amino Transferase 23 U/L (0-40); Blood Urea Nitrogen 26 mg/dL (8-23); Calcium 9.7 mg/dL (8.5-10.5); Carbon Dioxide 25 mmol/L (22-29); Chloride 98 mmol/L (98-107); Globulin 2.7 g/dL (1.3-4.6); Glucose 149 mg/dL (65-115); Magnesium 1.9 mg/dL (1.7-2.3); NT Pro B Type Natriuretic Pept 72 pg/mL (0-450); Osmolality Calculated 284 mOsm/kg (285-295); Phosphorus 3.8 mg/dL (2.5-4.5); Potassium 4.2 mmol/L (3.5-5.1); Sodium 133 mmol/L (136-145); Total Bilirubin 0.4 mg/dL (0.15-1.2)
[2021-11-15 22:00] VITALS: BP 127/72; PULSE 63; RESP 18; O2SAT 97
--- NOTE | 2021-11-15 22:17 | ECG_ITS ---
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 Measurements Intervals [place] Rate: 52 P: SD: QRS: 1 QRSD: 109 T: 125 QT: 409 QTc: 381 Interpretive Statements Sinus bradycardia with second-degree type II AV block and possible third-degree AV block ANTEROSEPTAL MYOCARDIAL INFARCTION , OF INDETERMINATE AGE [40+ ms Q WAVE IN V1-V4] Compared to ECG 11/15/2021 21:04:00 First degree AV block no longer present Myocardial infarct finding still present Electronically Signed On 11-16-2021 16:30:39 CDT by Garcia Moore M.D. [id number]
[2021-11-15 22:42] VITALS: BP 132/77; PULSE 50; PULSE 63; RESP 18; O2SAT 97
--- NOTE | 2021-11-15 22:54 | PM.HP ---
Providers/Chief Complaint Chief Complaint: Dr sent due to heart monitor History of Present Illness Aristeo José is a 76 year old male with past medical history of coronary artery disease status post CABG , status post PCI, was recently discharged from hospital at that time he presented with cough found to be bradycardic with ?heart rate in 30 to 40s , second-degree type I AV block, he was discharged on event monitor, was called today as today on the event monitor, high-grade high-grade AV block was noted (Mobitz type II, with short interval third-degree AV block ). Holter monitor reading of 11/13: Has shown third-degree heart block. when I examined the patient he was complaining of fatigue, denied any chest pain shortness of breath nausea vomiting lightheadedness dizziness. Pertinent imaging studies: X-ray chest: No acute findings EKG: A. fib with slow ventricular response. 'His labs and vitals have been reviewed. Review of Systems General: Reports: 10 or more systems reviewed and unremarkable except in HPI and below Const: Denies: fever(s), chills, body aches, change in appetite or diaphoresis Card: Denies: palpitations, edema, swelling of feet/ankles, dyspnea on exertion, orthopnea or leg pain with exertion Resp: Denies: dyspnea, productive cough, wheezing or pain on inspiration GI: Denies: abdominal pain, nausea, vomiting, diarrhea or constipation : Denies: flank pain or difficulty urinating Musc: Denies: back pain, extremity pain or extremity swelling Neuro: Denies: headache(s), difficulty walking or confusion Medications/Allergies Home Medications Medication Instructions Recorded Confirmed Last Taken Type Lantus U-100 Insulin 35 units SUBCUT BID 10/28/21 11/16/21 11/15/21 08:00 History 35 units Vitamin D3 4,000 unit PO BEDTIME 10/28/21 11/16/21 11/15/21 18:30 History 4000 units amlodipine 10 mg tablet 10 mg PO DAILY 10/28/21 11/16/21 11/15/21 08:00 History 10 mg atorvastatin 20 mg PO BEDTIME 10/28/21 11/16/21 11/14/21 21:00 History 20 mg finasteride 5 mg tablet 5 mg PO QPM 10/28/21 11/16/21 11/15/21 18:30 History 5 mg furosemide 10 mg PO QAM 10/28/21 11/16/21 11/15/21 08:00 History 10 mg glipizide 10 mg tablet 10 mg PO BID 10/28/21 11/16/21 11/15/21 12:00 History 10 mg isosorbide mononitrate 60 mg 60 mg PO QAM 10/28/21 11/16/21 11/15/21 08:00 History tablet,extended release 24 hr 60 mg lisinopril 20 mg tablet 20 mg PO BID 10/28/21 11/16/21 11/15/21 08:00 History 20 mg loratadine 10 mg PO DAILY 10/28/21 11/16/21 11/15/21 08:00 History 10 mg melatonin 6 mg PO BEDTIME 10/28/21 11/16/21 11/14/21 20:30 History 6 mg mirabegron 25 mg PO BEDTIME 10/28/21 11/16/21 11/15/21 18:30 History 25 mg naproxen 500 mg PO BIDWM 10/28/21 11/16/21 11/15/21 08:00 History 500 mg omega 8-xvk-cgv-fish oil 1,000 mg 1 cap PO DAILY 10/28/21 11/16/21 11/15/21 12:00 History (120 mg-180 mg) capsule (Fish Oil) 1 primidone 50 mg tablet 25 mg PO QAM 10/28/21 11/16/21 11/15/21 08:00 History 25 mg primidone 50 mg tablet 100 mg PO QPM 10/28/21 11/16/21 11/14/21 21:00 History tamsulosin 0.4 mg PO QPM 10/28/21 11/16/21 11/15/21 18:30 History 0.4mg venlafaxine 150 mg 150 mg PO DAILY 10/28/21 11/16/21 11/15/21 08:00 History capsule,extended release 24 hr 150 mg Allergies Allergy/AdvReac Type Severity Reaction Status Date / Time morphine Allergy Unknown Unknown Verified 11/06/21 09:48 PFSH Acute PFSH: Medical History (Updated 11/16/21 @ 08:04 by Garcia Moore MD) Draper's cyst of knee CAD (coronary artery disease) 3 stents Diabetes HTN (hypertension) Primary osteoarthritis of right knee Redness of both eyes Resting tremor Surgical History (Updated 11/16/21 @ 08:04 by Garcia Moore MD) H/O hernia repair S/P CABG (coronary artery bypass graft) 2013 Family History Father Cancer Lung cancer Social History Smoking and tobacco status: never smoked Alcohol intake: never Vitals/I&O/Wt Last Vital Signs Temp 98.4 F 11/15/21 20:00 Pulse 76 11/15/21 20:00 Resp 18 11/15/21 20:00 BP 179/88 11/15/21 20:00 Pulse Ox 97 11/15/21 20:00 Weight last 48 hrs Weight 92.986 kg Physical Exam Const: COMMON NORMALS: patient oriented x3 HENMT: COMMON NORMALS: normocephalic and atraumatic HEAD & SCALP: normocephalic and atraumatic EXTERNAL EAR: Yes external ears normal Resp: COMMON NORMALS: clear to auscultation bilaterally EFFORT & INSPECTION: Yes symmetric chest movement AUSCULTATION: clear to auscultation bilaterally Cardio: COMMON NORMALS: regular rate, regular rhythm, S1 normal heart sound present, S2 normal heart sound present, No gallops present (Cardio), No murmurs present (Cardio), No rub (Cardio) and Peripheral pulses 2+ throughout RATE: regular rate RHYTHM: regular rhythm HEART SOUNDS: S1 normal heart sound present and S2 normal heart sound present PERIPHERAL PULSES: Peripheral pulses 2+ throughout GI: COMMON NORMALS: Normal to inspection, nondistended, normoactive bowel sounds present, Soft to palpation, non-tender, No hepatosplenomegaly present and no masses AUSCULTATION: Yes normoactive bowel sounds PALPATION: Yes Soft to palpation and Yes No hepatosplenomegaly present RECTAL EXAM: Yes deferred Extremity: COMMON NORMALS: no clubbing, cyanosis or edema and no pedal edema Neuro: COMMON NORMALS: patient oriented x3 Data : 11/16/21 03:45 11/16/21 03:45 A&P Assessment and plan (1) Bradycardia: Status: Acute (2) Diabetes: Status: Acute (3) HTN (hypertension): Status: Acute (4) Mobitz (type) II atrioventricular block: Status: Acute (5) Complete heart block: Status: Acute Plan 76 year old male with past medical history of coronary artery disease status post CABG , status post PCI. Assessment: Complete heart block Continue telemetry monitoring Patient not on any raine blocking agent. Currently n.p.o. Cardiology on board for [facility] #History of coronary artery disease s/p CABG's/PCI #History of hypertension: Continue amlodipine Continue lisinopril 20 mg p.o. twice daily Continue Imdur Continue Imdur CODE STATUS: Full code DVT prophylaxis on Lovenox Attestations Medical Necessity Statement*: Patient needs to be in hospital for management of CHB. Anticipated length of stay greater than 2 midnight. Coding Level of Care Code Acute Supply Tech for g Fwd Exam Detailed Diagnoses Bradycardia R00.1 Diabetes E11.9 HTN (hypertension) I10 Mobitz (type) II atrioventricular block I44.1 Complete heart block I44.2
[2021-11-16] VITALS (12 sets, daily range): BP systolic 110–171; BP diastolic 69–91; PULSE 53–87; RESP 16–18; TEMP 36.4–36.9; O2SAT 92–97
[2021-11-16] MEDS: hyDRALAzine 25 mg Tablet PO (01:10)
[2021-11-16 02:08] LABS: Add Urine Microscopic? NO; Charge for UA Resulting for Rev
[2021-11-16 02:11] LABS: Bilirubin Urine Neg (Negative); Blood Urine Neg (Negative); Glucose Urine UA Norm (Normal); Ketones Urine Negative (Negative); Leukocyte Esterase Urine Negative (Negative); Nitrate Urine Negative (Negative); Protein Urine Neg (Negative); Specific Gravity, Urine 1.015 (1.005-1.030); Urine Appearance Clear (CLEAR); Urine Color Yellow (Yellow); Urobilinogen Urine Norm (Negative); pH Urine 5 (5-7)
--- NOTE | 2021-11-16 02:17 | ECG_ITS ---
[facility] Test Date: 2021-11-16 Pat Name: Aristeo José Department: Room: 277 Gender: Male Lactation Nurse: : 1945 Requested By: Vivek Ramos Order Number: [id number] Justin MD: Garcia Moore M.D. Measurements Intervals [place] Rate: 50 P: -42 CO: 197 QRS: 0 QRSD: 94 T: 180 QT: 431 QTc: 395 Interpretive Statements SINUS BRADYCARDIA WITH second-degree AV block type I ANTEROSEPTAL MYOCARDIAL INFARCTION , PROBABLY OLD [40+ ms Q WAVE IN V1-V4] Compared to ECG 11/15/2021 22:37:29 Myocardial infarct finding still present Electronically Signed On 11-16-2021 16:31:52 CDT by Garcia Moore M.D. [id number]
[2021-11-16 04:26] LABS: Basophils % 0.5 %; Eosinophils # 0.3 10^3/uL (0.0-0.8); Eosinophils % 4.8 %; Hematocrit 48.8 % (42.0-52.0); Hemoglobin 16.5 g/dL (11.7-16.6); Lymphocytes # 2.2 10^3/uL (0.8-4.8); Lymphocytes % 33.5 %; Mean Corpuscular HGB Conc 33.8 g/dL (30.0-36.0); Mean Corpuscular Hemoglobin 30.2 pg (28.0-34.0); Mean Corpuscular Volume 89.4 fl (80-94); Mean Platelet Volume 10.3 fL (7.4-10.4); Monocytes # 0.8 10^3/uL (0.2-0.9); Monocytes % 12.1 %; Neutrophils # 3.15 10^3/uL (1.8-7.7); Neutrophils % 48.9 %; Nucleated Red Blood Cells % 0 %; Platelet Count 209 10^3/cmm (130-400); Red Blood Count 5.46 10^6/uL (4.1-5.3); Red Cell Distribution Width 14.2 % (12.1-15.1); White Blood Count 6.4 10^3/uL (4.0-10.0)
[2021-11-16 04:40] LABS: Troponin 5 6HR 27.11 ng/L (0-15); Troponin 5 6HR Delta 2.11 ng/L (0-12)
[2021-11-16 04:46] LABS: Blood Urea Nitrogen 24 mg/dL (8-23); Calcium 9.9 mg/dL (8.5-10.5); Carbon Dioxide 25 mmol/L (22-29); Chloride 100 mmol/L (98-107); Glucose 92 mg/dL (65-115); NT Pro B Type Natriuretic Pept 64 pg/mL (0-450); Osmolality Calculated 288 mOsm/kg (285-295); Sodium 137 mmol/L (136-145); Thyroid Stimulating Hormone 6.09 uIU/mL (0.27-4.20)
[2021-11-16 04:47] LABS: Anion Gap 16.1 (5-19); Potassium 4.1 mmol/L (3.5-5.1)
--- NOTE | 2021-11-16 07:00 | ECG_ITS ---
[facility] Test Date: 2021-11-16 Pat Name: Aristeo José Department: Room: 277 Gender: Male Electronic Calibration Technician: : 1945 Requested By: Linwood Bartlett Order Number: [id number] Justin MD: Garcia Moore M.D. Measurements Intervals [place] Rate: 60 P: OR: QRS: -15 QRSD: 105 T: 45 QT: 418 QTc: 419 Interpretive Statements Sinus rhythm with second-degree AV block type I, possible intermittent third-degree heart block MINIMAL VOLTAGE CRITERIA FOR LVH, CONSIDER NORMAL VARIANT [MEETS CRITERIA IN ONE OF: R(aVL), S(V1), R(V5), R(V5/V6)+S(V1)] INFERIOR MYOCARDIAL INFARCTION , PROBABLY OLD [40+ ms Q WAVE AND/OR ST/T ABNORMALITY IN II/aVF] ANTEROSEPTAL MYOCARDIAL INFARCTION , OF INDETERMINATE AGE [40+ ms Q WAVE IN V1-V4] Compared to ECG 11/16/2021 02:44:57 Myocardial infarct finding still present Electronically Signed On 11-16-2021 16:33:29 CDT by Garcia Moore M.D. [email or web address] [facility] Learningun[id number]
--- NOTE | 2021-11-16 08:00 | PM.CONSULT ---
Providers/Reason For Consult Consulting Physician/Specialty*: Cardiovascular medicine Reason for Consult*: High degree AV block Requesting Physician: Hospitalist Attending Physician: Luis Alfredo Bingham History of Present Illness History of Present Illness Aristeo José is a 76 year old male who has been admitted to this hospital on of last month and was discovered to have brief episodes of second-degree AV block type II. There was not enough to warrant pacemaker at that time so he was sent home with an event monitor. Over the last several days the event monitor has discovered some brief episodes of complete heart block. He was called yesterday and asked to come into the hospital. He has been admitted overnight. Indeed the monitor does show brief episodes of third-degree AV block. Patient has had no syncope or presyncope. He states that he is tired all the time . That is about all 1 can get out of him. He does have a history of coronary disease with bypass surgery, BPH, dyslipidemia and diabetes. His most recent echo was a couple weeks ago showing grade 1 diastolic dysfunction and an ejection fraction of 55 to 60%. His stress test which was a nuclear stress test was negative for ischemia last month. His troponins have been negative. He receives his primary care from the CT. Review of Systems Narrative: Review of systems is negative Medications/Allergies Home Medications Medication Instructions Recorded Confirmed Last Taken Type Lantus U-100 Insulin 35 units SUBCUT BID 10/28/21 11/16/21 11/15/21 08:00 History 35 units Vitamin D3 4,000 unit PO BEDTIME 10/28/21 11/16/21 11/15/21 18:30 History 4000 units amlodipine 10 mg tablet 10 mg PO DAILY 10/28/21 11/16/21 11/15/21 08:00 History 10 mg atorvastatin 20 mg PO BEDTIME 10/28/21 11/16/21 11/14/21 21:00 History 20 mg finasteride 5 mg tablet 5 mg PO QPM 10/28/21 11/16/21 11/15/21 18:30 History 5 mg furosemide 10 mg PO QAM 10/28/21 11/16/21 11/15/21 08:00 History 10 mg glipizide 10 mg tablet 10 mg PO BID 10/28/21 11/16/21 11/15/21 12:00 History 10 mg isosorbide mononitrate 60 mg 60 mg PO QAM 10/28/21 11/16/21 11/15/21 08:00 History tablet,extended release 24 hr 60 mg lisinopril 20 mg tablet 20 mg PO BID 10/28/21 11/16/21 11/15/21 08:00 History 20 mg loratadine 10 mg PO DAILY 10/28/21 11/16/21 11/15/21 08:00 History 10 mg melatonin 6 mg PO BEDTIME 10/28/21 11/16/21 11/14/21 20:30 History 6 mg mirabegron 25 mg PO BEDTIME 10/28/21 11/16/21 11/15/21 18:30 History 25 mg naproxen 500 mg PO BIDWM 10/28/21 11/16/21 11/15/21 08:00 History 500 mg omega 3-fnv-hua-fish oil 1,000 mg 1 cap PO DAILY 10/28/21 11/16/21 11/15/21 12:00 History (120 mg-180 mg) capsule (Fish Oil) 1 primidone 50 mg tablet 25 mg PO QAM 10/28/21 11/16/21 11/15/21 08:00 History 25 mg primidone 50 mg tablet 100 mg PO QPM 10/28/21 11/16/21 11/14/21 21:00 History tamsulosin 0.4 mg PO QPM 10/28/21 11/16/21 11/15/21 18:30 History 0.4mg venlafaxine 150 mg 150 mg PO DAILY 10/28/21 11/16/21 11/15/21 08:00 History capsule,extended release 24 hr 150 mg Allergies Allergy/AdvReac Type Severity Reaction Status Date / Time morphine Allergy Unknown Unknown Verified 11/06/21 09:48 PFSH Acute PFSH: Medical History (Updated 11/16/21 @ 08:04 by Garcia Moore MD) Draper's cyst of knee CAD (coronary artery disease) 3 stents Diabetes HTN (hypertension) Primary osteoarthritis of right knee Redness of both eyes Resting tremor Surgical History (Updated 11/16/21 @ 08:04 by Garcia Moore MD) H/O hernia repair S/P CABG (coronary artery bypass graft) 2013 Family History Father Cancer Lung cancer Social History Smoking and tobacco status: never smoked Alcohol intake: never Vitals/I&O/Wt Last Vital Signs Temp 98.3 F 11/16/21 04:00 Pulse 58 L 11/16/21 06:00 Resp 18 11/16/21 04:00 BP 141/71 11/16/21 04:00 Pulse Ox 94 11/16/21 04:00 Weight last 48 hrs Weight 205 lb Physical Exam Narrative: GENERAL: In general he is comfortable. HEENT: Exam within normal limits. NECK: Supple without jugular vein distention. The carotid upstroke is normal without bruits. BACK: Exam normal. LUNGS: Clear. HEART: Regular rate and rhythm. ABDOMEN: Benign without organomegaly or tenderness. EXTREMITIES: No edema. NEUROLOGIC: Exam normal. SKIN: Unremarkable. Data : 11/16/21 03:45 11/16/21 03:45 A&P Assessment and plan (1) Complete heart block: Status: Acute (2) Mobitz (type) II atrioventricular block: Status: Acute (3) Bradycardia: Status: Acute (4) Diabetes: Status: Acute (5) HTN (hypertension): Status: Acute (6) Bronchitis: Status: Acute (7) CAD (coronary artery disease): Status: Acute (8) S/P CABG (coronary artery bypass graft): Status: Acute Plan Patient will need a permanent pacemaker. We will try to get this arranged as soon as possible. Coding Level of Care Code New Pt Acute Automotive Technology Instructor for [facility] Fwd Patient Type New History Detailed Exam Detailed Medical Decision Making Moderate Complexity Diagnoses Complete heart block I44.2 Mobitz (type) II atrioventricular block I44.1 Bradycardia R00.1 Diabetes E11.9 HTN (hypertension) I10 Bronchitis J40 CAD (coronary artery disease) I25.10 S/P CABG (coronary artery bypass graft) Z95.1
[2021-11-16 08:14] LABS: Glucose Point of Care 123 mg/dL (70-110)
[2021-11-16] MEDS: lisinopril 20 mg Tablet PO ×2 (09:42→17:28)
[2021-11-16] MEDS: amlodipine 10 mg Tablet PO (09:42)
[2021-11-16] MEDS: isosorbide mononitrate ER 60 mg Tablet PO (09:42)
[2021-11-16] MEDS: venlafaxine ER (24HR) 150 mg Capsule PO (09:42)
--- NOTE | 2021-11-16 09:51 | PC.CHAP ---
Pastoral Care Encounter/Spiritual Assessment Type of Contact [] Declined general road foreman visit [] Patient/Family/Request visit [] Outpatient visit [] Follow-up visit [] Physician referral [] Code/Alert [x] Routine visit [] Staff referral [] Actively dying [] Patient sleeping [] Family support [] [] Out of room [] Palliative care [] [] Receiving care in room [] Pre-surgical visit [] Trauma [] Long length of stay [] ICU visit [] Other: Relational/Emotional Strength [] Patient feels connected with others/family/visitors/staff [] Distress [] Loneliness/isolation [] Abandonment Spirituality of Patient [x] Person of Karen [] Attends Religious of their Karen [x] Believes in Prayer [] Reads Bible or Methodist materials [] There are Spiritual issues to be addressed Director Hedis Interventions [x] Prayer [x] Active listening [] Non-anxious presence [] Spiritual/emotional support [] Crisis/trauma care [] Spiritual counseling [] Bereavement support [] Provided bereavement packet [] Provided Bible/devotional materials [] Provided toy/stuffed animal, coloring book to patient or family member [] Provided Communion [] Anointing/[place] [] Salvation [x] Completed spiritual assessment [] Other: Impact on Illness or Injury [] Angry [] Fearful [] Anxious [] Often cries [] Exhaustion [] Unable to work [] Unable to attend mandaen [] Unable to walk/stand [] Unable to read [] Unable to drive [] Unable to eat/drink [] Unable to sleep [] Unable to be with family [] Patient intubated [] Other: Summary Time spent with patient 5 min
[2021-11-16 11:48] LABS: Glucose Point of Care 136 mg/dL (70-110)
--- NOTE | 2021-11-16 13:07 | P.PN_ITS ---
Subjective Subjective: Denies chest pain or pressure. No trouble breathing. Vitals/I&O/Wt Last Vital Signs Temp 98.4 F 11/16/21 08:00 Pulse 69 11/16/21 08:00 Resp 16 11/16/21 08:00 BP 171/69 11/16/21 08:00 Pulse Ox 92 11/16/21 08:00 Weight last 48 hrs Weight 92.986 kg Physical Exam Narrative: Family at bedside. Const: COMMON NORMALS: alert GENERAL APPEARANCE: cooperative NUTRITIONAL APPEARANCE: overweight ORIENTATION/CONSCIOUSNESS: Yes awake HENMT: COMMON NORMALS: normocephalic, EAC's normal, Normal external nose present and moist oral mucous membranes HEAD & SCALP: normocephalic NOSE: Normal external nose present EXTERNAL AUDITORY CANAL: EAC's normal Neck/C-Spine: COMMON NORMALS: no meningeal signs Chest: CHEST: Yes Symmetrical chest wall rise Resp: COMMON NORMALS: clear to auscultation bilaterally AUSCULTATION: clear to auscultation bilaterally Cardio: COMMON NORMALS: regular rate and No murmurs present (Cardio) RATE: regular rate and bradycardic GI: COMMON NORMALS: Normal to inspection, nondistended, normoactive bowel sounds present, Soft to palpation and non-tender PALPATION: Yes Soft to palpation Extremity: COMMON NORMALS: no pedal edema Neuro: COMMON NORMALS: moves all extremities SENSORIUM/ORIENTATION: Yes alert MENINGEAL SIGNS: Yes no meningeal signs Psych: COMMON NORMALS: mental status grossly normal Skin: COMMON NORMALS: no wounds RASHES: no rashes Data : 11/16/21 03:45 11/16/21 03:45 A&P Assessment and plan (1) Bradycardia: PPM is recommended by cardiology which is planned for tomorrow. Status: Acute (2) Diabetes: Status: Acute (3) HTN (hypertension): Status: Acute (4) Mobitz (type) II atrioventricular block: Status: Acute (5) Complete heart block: Status: Acute Plan #History of coronary artery disease s/p CABG's/PCI #History of hypertension: Continue amlodipine Continue lisinopril 20 mg p.o. twice daily Continue Imdur CODE STATUS: Full code Attestations Medical Necessity Statement*: Continue admission for assessment and management of high degree AV block. Coding Level of Care Code Acute Senior Reliability Engineer for [facility] Fwd Diagnoses Bradycardia R00.1 Diabetes E11.9 HTN (hypertension) I10 Mobitz (type) II atrioventricular block I44.1 Complete heart block I44.2
[2021-11-16 13:56] LABS: Free T4 Free Thyroxine 0.85 ng/dL (0.82-1.77); T3 Free 3.1 PG/ML (2.0-4.4)
--- NOTE | 2021-11-16 16:22 | PM.CONSULT ---
Providers/Reason For Consult Consulting Physician/Specialty*: ANTONI Velazquez MD/cardiology Reason for Consult*: Consider permanent pacer implantation Requesting Physician: Dr. Carlin Attending Physician: Luis Alfredo Bingham History of Present Illness History of Present Illness Aristeo José is a 76 year old male This patient is admitted to the hospital with features of symptomatic bradycardia. Was found to have high degree intermittent AV block on EKG and on telemetry. I was consulted to consider a permanent pacer implantation on this patient Further details of the history and physical, please refer to the admission history and physical by Dr. Bartlett and to the consultation history and physical by Dr. Moore This patient is right-handed. He has no fever or chills. No bleeding complications. Not on any oral anticoagulants. Kidney function is normal Medications/Allergies Home Medications Medication Instructions Recorded Confirmed Last Taken Type Lantus U-100 Insulin 35 units SUBCUT BID 10/28/21 11/16/21 11/15/21 08:00 History 35 units Vitamin D3 4,000 unit PO BEDTIME 10/28/21 11/16/21 11/15/21 18:30 History 4000 units amlodipine 10 mg tablet 10 mg PO DAILY 10/28/21 11/16/21 11/15/21 08:00 History 10 mg atorvastatin 20 mg PO BEDTIME 10/28/21 11/16/21 11/14/21 21:00 History 20 mg finasteride 5 mg tablet 5 mg PO QPM 10/28/21 11/16/21 11/15/21 18:30 History 5 mg furosemide 10 mg PO QAM 10/28/21 11/16/21 11/15/21 08:00 History 10 mg glipizide 10 mg tablet 10 mg PO BID 10/28/21 11/16/21 11/15/21 12:00 History 10 mg isosorbide mononitrate 60 mg 60 mg PO QAM 10/28/21 11/16/21 11/15/21 08:00 History tablet,extended release 24 hr 60 mg lisinopril 20 mg tablet 20 mg PO BID 10/28/21 11/16/21 11/15/21 08:00 History 20 mg loratadine 10 mg PO DAILY 10/28/21 11/16/21 11/15/21 08:00 History 10 mg melatonin 6 mg PO BEDTIME 10/28/21 11/16/21 11/14/21 20:30 History 6 mg mirabegron 25 mg PO BEDTIME 10/28/21 11/16/21 11/15/21 18:30 History 25 mg naproxen 500 mg PO BIDWM 10/28/21 11/16/21 11/15/21 08:00 History 500 mg omega 9-zki-uux-fish oil 1,000 mg 1 cap PO DAILY 10/28/21 11/16/21 11/15/21 12:00 History (120 mg-180 mg) capsule (Fish Oil) 1 primidone 50 mg tablet 25 mg PO QAM 10/28/21 11/16/21 11/15/21 08:00 History 25 mg primidone 50 mg tablet 100 mg PO QPM 10/28/21 11/16/21 11/14/21 21:00 History tamsulosin 0.4 mg PO QPM 10/28/21 11/16/21 11/15/21 18:30 History 0.4mg venlafaxine 150 mg 150 mg PO DAILY 10/28/21 11/16/21 11/15/21 08:00 History capsule,extended release 24 hr 150 mg Allergies Allergy/AdvReac Type Severity Reaction Status Date / Time morphine Allergy Unknown Unknown Verified 11/06/21 09:48 Current Medications Generic Name Dose Route Start Last Admin Trade Name Geoffq PRN Reason Stop Dose Admin Amlodipine Besylate 10 mg 11/16/21 09:00 11/16/21 09:42 Amlodipine 10 Mg Tablet PO 10 mg DAILY OREN Administration Insulin Human Lispro 0 unit 11/16/21 08:00 11/16/21 11:59 Insulin Lispro 100 Unit/1 Ml SUBCUT Not Given WM&BEDTIME OREN Protocol Isosorbide Mononitrate 60 mg 11/16/21 09:00 11/16/21 09:42 Isosorbide Mononitrate Er 60 Mg Tablet PO 60 mg QAM OREN Administration Lisinopril 20 mg 11/16/21 09:00 11/16/21 09:42 Lisinopril 20 Mg Tablet PO 20 mg BID OREN Administration Venlafaxine HCl 150 mg 11/16/21 09:00 11/16/21 09:42 Venlafaxine Er (24hr) 150 Mg Capsule PO 150 mg DAILY OREN Administration PFSH Acute PFSH: Medical History Draper's cyst of knee CAD (coronary artery disease) 3 stents Diabetes HTN (hypertension) Primary osteoarthritis of right knee Redness of both eyes Resting tremor Surgical History H/O hernia repair S/P CABG (coronary artery bypass graft) 2013 Family History Father Cancer Lung cancer Social History Smoking and tobacco status: never smoked Alcohol intake: never Vitals/I&O/Wt Last Vital Signs Temp 97.5 F L 11/16/21 12:00 Pulse 84 11/16/21 15:04 Resp 16 11/16/21 12:00 BP 128/75 11/16/21 12:00 Pulse Ox 97 11/16/21 12:00 11/16/21 11/16/21 11/16/21 06:59 14:59 22:59 Intake Total 240 / 240 Balance 240 / 240 Weight last 48 hrs Weight 205 lb Physical Exam Narrative: GENERAL: The patient is alert and oriented times three. Not in any acute distress. HEENT: No significant pallor, icterus or lymphadenopathy.Oral cavity: There are no mucous membrane lesions. NECK: Trachea appears to be central. No masses noted. No JVD or thyromegaly appreciated. RESPIRATORY: Chest is symmetrical. No intercostals muscle retraction or any accessory muscle activation. There is no chest wall tenderness. Breath sounds are heard bilaterally. No rales or rhonchi heard. No evidence of any consolidation. BREASTS: Deferred. HEART: The heart sounds are normal. No S3 or S4. No significant murmurs. No pericardial rub ABDOMEN: No vessel pulsations or distention. No tenderness. No organomegaly appreciated. Bowel sounds are normally heard. : Deferred. RECTAL: Deferred. LYMPHATIC: No lymphadenopathy noted in the neck. EXTREMITIES: No edema or cyanosis. No clubbing. MUSCULOSKELETAL: No acute joint deformities or swelling SKIN: There are no significant rashes or ecchymosis NEUROPSYCHIATRIC: The patient is alert and oriented x3. Appears to be in a good mood. No tremors or rigidity noted. Data : 11/16/21 03:45 11/16/21 03:45 A&P Assessment and plan (1) High degree atrioventricular block: For further management of the patient's condition, I agree with the plan to have a permanent pacemaker implantation. This was discussed with the patient detail. The risk of bleeding, hematoma, vascular injury, pneumothorax, infection, renal failure and other concomitant complications were explained in detail. The patient and his son understood this well and consented to proceed. We will go ahead and plan for this procedure tomorrow. Status: Acute (2) Symptomatic bradycardia: As mentioned above. Patient may benefit from a dual-chamber pacemaker for AV synchrony and symptom relief Status: Acute (3) Atherosclerosis of coronary artery of [place] heart without angina pectoris: This patient had a recent myocardial perfusion imaging-on 10/29/2021. He was found to have no evidence of ischemia. Status: Acute Plan We will go ahead and do a chest x-ray as part of the preop evaluation. Schedule for the permanent pacer implantation in the morning. Keep n.p.o. after midnight Based on the clinical progress, further recommendations will be made Coding Level of Care Code Acute Net Application Support Specialist for [facility] Fwd Diagnoses High degree atrioventricular block I44.39 Symptomatic bradycardia R00.1 Atherosclerosis of coronary artery of [place] heart without angina pectoris I25.10
[2021-11-16 16:52] LABS: Glucose Point of Care 196 mg/dL (70-110)
--- NOTE | 2021-11-16 17:10 | PC.NURSE ---
Hold this evenings lovenox dose per Dr. Velazquez, pacemaker placement in am
--- NOTE | 2021-11-16 17:11 | XRR_ITS ---
PROCEDURE INFORMATION: Exam: XR Chest Exam date and time: 11/16/2021 7:23 PM Age: 76 years old Clinical indication: Pre-operative exam; Respiratory screening exam; Additional info: Pre- op, have the patient on the monitor while doing this TECHNIQUE: Imaging protocol: XR of the chest. Views: 2 views. COMPARISON: CR (CHEST, ) 11/15/2021 8:49 PM FINDINGS: Lungs: Hypoinflation and interstitial prominence. Pleural spaces: Poorly defined density overlying the left lung base, which can be better assessed with PA and lateral chest radiographs. Heart/Mediastinum: Cardiac silhouette upper limits of normal size. Bones/joints: Median sternotomy. XR/XR chest 2V insp/exp [id number] IMPRESSION: Poorly defined density overlying the left lung base, which can be better assessed with PA and lateral chest radiographs.
[2021-11-16] MEDS: finasteride 5 mg Tablet PO (17:28)
[2021-11-16] MEDS: insulin lispro 100 unit/1 mL SUBCUT (17:28)
[2021-11-16] MEDS: atorvastatin 40 mg Tablet 20 MG PO (21:41)
[2021-11-16 21:54] LABS: Glucose Point of Care 178 mg/dL (70-110)
[2021-11-16] MEDS: acetaminophen 325 mg Tablet 650 MG PO (22:45)
[2021-11-17] VITALS (10 sets, daily range): BP systolic 101–154; BP diastolic 65–91; PULSE 45–83; RESP 14–18; TEMP 36.4–36.7; O2SAT 92–97
[2021-11-17 03:09] LABS: Basophils % 0.4 %; Eosinophils # 0.3 10^3/uL (0.0-0.8); Eosinophils % 3.5 %; Hematocrit 45.3 % (42.0-52.0); Hemoglobin 15.2 g/dL (11.7-16.6); Lymphocytes # 2.4 10^3/uL (0.8-4.8); Lymphocytes % 29.5 %; Mean Corpuscular HGB Conc 33.6 g/dL (30.0-36.0); Mean Corpuscular Volume 89.5 fl (80-94); Mean Platelet Volume 10.4 fL (7.4-10.4); Monocytes # 1.2 10^3/uL (0.2-0.9); Monocytes % 14.3 %; Neutrophils # 4.31 10^3/uL (1.8-7.7); Neutrophils % 52.2 %; Nucleated Red Blood Cells % 0 %; Platelet Count 219 10^3/cmm (130-400); Red Blood Count 5.06 10^6/uL (4.1-5.3); Red Cell Distribution Width 14.2 % (12.1-15.1); White Blood Count 8.3 10^3/uL (4.0-10.0)
[2021-11-17 03:40] LABS: Anion Gap 14.1 (5-19); Blood Urea Nitrogen 26 mg/dL (8-23); Calcium 9.5 mg/dL (8.5-10.5); Carbon Dioxide 24 mmol/L (22-29); Chloride 100 mmol/L (98-107); Glucose 165 mg/dL (65-115); Osmolality Calculated 286 mOsm/kg (285-295); Potassium 4.1 mmol/L (3.5-5.1); Sodium 134 mmol/L (136-145)
[2021-11-17] MEDS: sodium chloride 0.9% 1,000 ML 75 ML IV ×2 (06:25→19:54)
[2021-11-17] MEDS: isosorbide mononitrate ER 60 mg Tablet PO (06:25)
--- NOTE | 2021-11-17 08:16 | XACV_ITS ---
Exam Room: [facility] Ht: 170 cm Wt: 93 kg BSA: 2.13 m2 Gender: Male : 1945 Any Known Allergies: Morphine Exam Priority: Routine Procedure(s): Procedure Description: Diagnostic procedure Procedure Description: Miscellaneous Procedure Description: Dual Chamber Pacemaker Implant Diagnostic Cath Status: Urgent Diagnostic Findings * A venogram was performed by injecting 20 cc of Omnipaque into the left subclavian vein. The vein was found to be widely patent. And tortuous. No evidence of any obstruction noted. Conclusions 1. Patent subclavian vein on the left side. No evidence of obstruction. Clinical Evaluation EBL: 5mL-10mL Procedural Details Procedure Consent Obtained. Pre-Procedure Time Out. Identified patient by full name and date of as verbalized by the patient/guarantor. Does the consent match the physician's order: Yes. Accurate & Complete Informed Consent: Yes. Inpatient/Outpatient History & Physical on Chart: Yes. If H&P is completed, is and addenduem needed: No; If yes, is the addendum complete: N/A. Visualize and Verify Site with Patient/Guarantor: N/A. Relevant Radiology Images available: N/A. Pre-op teaching completed and patient verbalized understanding. The risks, benefits, and alternatives of sedation and/or procedure were discussed by physician. The patient agrees to continue. Procedure started. PERRLA. Strong, equal hand case management manager bilaterally. Lungs clear x 5 lobes. Correct patient, site and procedure confirmed by cath team. IV Site on Arrival: 20 gauge in the left anticubital. Oxygen started at 2liters/min via nasal canula. bilateral subclavian region was prepped with chloroprep then draped in the usual sterile fashion. Baseline sample Acquired. HR: 74 BPM. O2 sat 98%. Physician arrived. Supplies: Cath pack, micropunture, bovie pen, 2-0 silk, 0 surgilon, 3-0 vicryl, 4-0 vicryl. O2 sat 98%. IV Fluids: 0.9% NaCl at KVO. 0 mL infused prior to labor arbitrator. Pre sponge count: 55. Pre sharps count: 20. Pre instrument count: 15. AP pads applied to pt per Dr Velazquez request. Physician scrubbed in. Time out performed with cath team. Lidocaine 1% infiltrated to Left subclavian area. 20 mL contrast injection was performed for subclavian visualization. Access obtained in left subclavian vein with micropuncture set. Lidocaine 1% infiltrated to Left subclavian area. Incision and pacer pocket made in left subclavian region. Inserted guidewire #1 into left subclavian vein. 2.0 silk used. Lidocaine 1% infiltrated to Left subclavian area. Access obtained in left subclavian vein with micropuncture set. Inserted guidewire #2 into left subclavian vein. Inserted 7 fr. safe sheath into left subclavian vein. Inserted Ventricular lead and tested. V lead screwed in. Safe sheath peeled away. Lead left intact. V lead retested. Ventricular lead sutured into place with surgilon. V lead retested. Inserted 7 fr. safe sheath into left subclavian vein. Inserted Atrial lead and tested. A lead screwed in. A lead retested. A lead retested. Safe sheath peeled away. Lead left intact. A lead retested. Atrial lead sutured into place with surgilon. Generator Lot# [id number]. A Lead Lot# [id number]. V Lead Lot# [id number]. V lead retested. Antibiotic flush used to clean pacer pocket. Generator attached and tested. Generator secured with surgilon. Subcutaneous tissue closed with 3-0 vicryl. Cutaneous tissue closed with 4-0 vicryl. All final counts correct. Dr Velazquez scrubbed out. Post Procedure: Pulses reassessed and unchanged. PERRLA. Strong, equal hand case management manager bilaterally. No VTE prophylaxis required. Medication's Wasted: Lidocaine 1% = 3 mL. Total IV fluids: 150 mL. Contrast type used: Omnipaque 300 mgI/mL, 500 mL bottle. left subclavian pocket dressed per physician order. Shoulder immobilizer in place. Anselmo wrap and 4x4's in place. No bleeding or hematoma noted at left subclavian pocket. Post Procedure: Pulses reassessed and unchanged. Post-op diagnosis: bradycardia, pacermaker placement. Complications: none. Estimated blood loss: 5mL-10mL. Responsiveness - Normal response to verbal stimuli; alert and oriented, PERRLA. Airway - Unaffected, no intervention required; spontaneous ventilation. Circulation: W/N/L, pulses unchanged. Nausea/Vomiting: No. Procedure completed. Patient transferred by bed to [facility]. Vital chart was stopped. Procedure Medications Start: 8:51 AM Stop: 8:51 AM Medication: Ancef Amount: 2 g Route: I.V. Start: 9:03 AM Stop: 9:03 AM Medication: Versed Amount: 1 mg Route: I.V. Start: 9:03 AM Stop: 9:03 AM Medication: Fentanyl Amount: 25 mcg Route: I.V. Start: 9:19 AM Stop: 9:19 AM Medication: Versed Amount: 1 mg Route: I.V. Start: 9:33 AM Stop: 9:33 AM Medication: Versed Amount: 1 mg Route: I.V. Start: 9:33 AM Stop: 9:33 AM Medication: Fentanyl Amount: 12.5 mcg Route: I.V. Start: 10:00 AM Stop: 10:00 AM Medication: Versed Amount: 1 mg Route: I.V. Start: 10:30 AM Stop: 10:30 AM Medication: Fentanyl Amount: 12.5 mcg Route: I.V. Start: 10:33 AM Stop: 10:33 AM Medication: Fentanyl Amount: 50 mcg Route: I.V. I, the attending physician, have reviewed and verified all procedure medications. No History/Risk Factors Hypertension: Yes Dyslipidemia: No Peripheral Arterial Disease (PAD): No Myocardial Infarction (MT): No Obesity: No Renal Disease: No Prior Interventions PCI: Yes CABG: Yes Valve Surgery: No Date of PCI: 08/15/2007 Report Signatures Finalized by Dr Bessie Velazquez MD [facility] on 11/18/2021 12:02 AM
--- NOTE | 2021-11-17 08:35 | PC.NURSE ---
to laboratory apparatus glass blower for pacemaker insertion procedure. ushered via bed. family w/patient.
--- NOTE | 2021-11-17 08:57 | W.PM.OPSUD ---
Surgery/Procedure H&P Update DATE OF PROCEDURE: November 17, 2021 DATE H&P PERFORMED: 11/15/21 H&P UPDATE INFORMATION: I have reviewed H&P completed within last 30 days, I have examined patient prior to procedure and No changes to prior documentation PREOP DIAGNOSIS: Symptomatic bradycardia PRIMARY INDICATION FOR PROCEDURE: intermittent high degree AV block/ bradycardia PLANNED PROCEDURE: Operation Date: 11/17/21 09:10 Proposed Procedures p Pacemaker Insertion(Not Applicable) - Bessie Velazquez MD PATIENT REASSESSED PRIOR TO SEDATION, WITH NO CHANGE NOTED: Yes PHYSICAL EXAM: alert, oriented x 3, clear to auscultation bilaterally and regular rate & rhythm (irregular rhythm) AIRWAY EVAL/ANESTHESIA PLAN: normal airway, see other exam findings, ASA III, Monitored Anesthesia, Local Anesthesia, Risks, benefits & alternatives of sedation and/or procedure discussed and Patient agrees to continue as planned
--- NOTE | 2021-11-17 11:00 | PC.NURSE ---
from laborer wrecking and salvaging pt is awake, oriented. pressure dressing to left upper chest is intact. no hematoma, pain, swelling noted. right radial pulse is palpable. activity restrictions discuss to pt such as not elevation of left arm above head and using left arm to try to reach things. shoulder immobilizer is attached to pt's left arm. vs monitored.
[2021-11-17] MEDS: venlafaxine ER (24HR) 150 mg Capsule PO (11:24)
[2021-11-17] MEDS: amlodipine 10 mg Tablet PO (11:24)
[2021-11-17] MEDS: lisinopril 20 mg Tablet PO ×2 (11:24→17:24)
[2021-11-17] MEDS: insulin lispro 100 unit/1 mL SUBCUT ×2 (13:23→17:24)
--- NOTE | 2021-11-17 13:36 | XRR_ITS ---
PROCEDURE INFORMATION: Exam: XR Chest Exam date and time: 11/17/2021 1:56 PM Age: 76 years old Clinical indication: Device placement; Cardiac pacemaker placement or adjustment; Prior surgery; Surgery date: Post-operative (0-2 days); Additional info: Post pacemaker insertion TECHNIQUE: Imaging protocol: XR of the chest. Views: 1 view. COMPARISON: CR XR chest 2V insp/exp [id number] 11/16/2021 7:23 PM FINDINGS: Tubes, catheters and devices: Atrioventricular pacemaker. Lungs: Mild interstitial prominence, without acute airspace disease. Pleural spaces: No significant pneumothorax or pleural effusion. Heart/Mediastinum: No cardiomegaly. Bones/joints: Median sternotomy. Degenerative change. XR/XR chest 1V portable [id number] IMPRESSION: No postprocedural complication following pacemaker placement.
--- NOTE | 2021-11-17 14:47 | PM.PN ---
Subjective Subjective: Just returned from pacemaker plantation. Reports he is doing well. Pressure. Is not short of breath. Vitals/I&O/Wt Last Vital Signs Temp 97.6 F 11/17/21 11:28 Pulse 72 11/17/21 11:28 Resp 16 11/17/21 11:28 BP 136/78 11/17/21 11:28 Pulse Ox 93 11/17/21 11:28 11/16/21 11/17/21 11/17/21 22:59 06:59 14:59 Intake Total 240 / 480 120 / 120 Output Total 480 / 480 Balance -240 / 0 120 / 120 Weight last 48 hrs Weight 92.986 kg Physical Exam Narrative: Family at bedside. Const: COMMON NORMALS: alert GENERAL APPEARANCE: cooperative NUTRITIONAL APPEARANCE: overweight ORIENTATION/CONSCIOUSNESS: Yes awake HENMT: COMMON NORMALS: normocephalic, EAC's normal, Normal external nose present and moist oral mucous membranes HEAD & SCALP: normocephalic NOSE: Normal external nose present EXTERNAL AUDITORY CANAL: EAC's normal Neck/C-Spine: COMMON NORMALS: no meningeal signs Chest: CHEST: Yes Symmetrical chest wall rise Resp: COMMON NORMALS: clear to auscultation bilaterally AUSCULTATION: clear to auscultation bilaterally Cardio: COMMON NORMALS: regular rate and No murmurs present (Cardio) RATE: regular rate GI: COMMON NORMALS: Normal to inspection, nondistended, normoactive bowel sounds present, Soft to palpation and non-tender PALPATION: Yes Soft to palpation Extremity: COMMON NORMALS: no pedal edema OTHER: RUE immobilizer in place. Neuro: COMMON NORMALS: moves all extremities SENSORIUM/ORIENTATION: Yes alert MENINGEAL SIGNS: Yes no meningeal signs Psych: COMMON NORMALS: mental status grossly normal Skin: COMMON NORMALS: no wounds RASHES: no rashes Data : 11/17/21 02:50 11/17/21 02:50 A&P Assessment and plan (1) Bradycardia: Pacemaker implantation today. Paced rhythm on the monitor. LUE immobilizer in place. Status: Acute (2) Diabetes: Status: Acute (3) HTN (hypertension): Status: Acute (4) Mobitz (type) II atrioventricular block: Status: Acute (5) Complete heart block: Status: Acute Plan Subclinical hypothyroidism: TSH elevation with normal T4 and T3. #History of coronary artery disease s/p CABG's/PCI #History of hypertension: Continue amlodipine Continue lisinopril 20 mg p.o. twice daily Continue Imdur CODE STATUS: Full code DVT prophylaxis on Lovenox Attestations Medical Necessity Statement*: Continue hospitalization for post pacemaker implantation care angiomata with a high-grade AV block. Coding Level of Care Code Acute Source Inspector for [facility] Fwd Exam Comprehensive Diagnoses Bradycardia R00.1 Diabetes E11.9 HTN (hypertension) I10 Mobitz (type) II atrioventricular block I44.1 Complete heart block I44.2
[2021-11-17] MEDS: acetaminophen 325 mg Tablet 650 MG PO ×2 (14:58→19:59)
[2021-11-17 16:56] LABS: Glucose Point of Care 199 mg/dL (70-110)
[2021-11-17 16:56] LABS: Glucose Point of Care 208 mg/dL (70-110)
[2021-11-17] MEDS: finasteride 5 mg Tablet PO (17:24)
[2021-11-17] MEDS: atorvastatin 40 mg Tablet 20 MG PO (19:55)
--- NOTE | 2021-11-17 21:57 | PC.NURSE ---
Addendum entered by Rocío Santo RN 11/17/21 22:03: Dr. Velazquez ordered to hold Lovenox and order compression stockings. Original Note: Unable to get ahold of Dr. Velazquez. Per hospitalist, hold 1700 Lovenox.
--- NOTE | 2021-11-17 22:07 | PM.OP ---
Operative Report Date of procedure: November 17, 2021 Pre-op diagnosis: Preop Diagnosis Symptomatic bradycardia Procedure: LOCATION: [] PREOPERATIVE DIAGNOSES: Intermittent high degree AV block/symptomatic bradycardia POSTOPERATIVE DIAGNOSES: Same. COMPLICATIONS: None. ESTIMATED BLOOD LOSS: Around 5 milliliters. BRIEF HISTORY: This is a 76-year-old white male with a history of high blood pressure, dyslipidemia, atherosclerotic heart disease, status post coronary bypass surgery, presented with episodes of dizziness/weakness/near syncopal episodes. He was found to have episodes of secondary heart block and high degree AV block on the event monitor. He had a previous hospital admission for symptomatic bradycardia. In view of his symptoms and the event monitor evidence of intermittent high degree AV block, in order to further manage his condition, a permanent pacemaker implantation was requested. A dual chamber permanent pacemaker implantation was recommended for AV synchrony and symptom relief The procedure was explained to the patient in detail with the risks and benefits. The risks of bleeding, hematoma, vascular injury, infection, pneumothorax, myocardial perforation and other concomitant complications were explained in detail, which the patient understood well and consented to proceed. PROCEDURE DESCRIPTION: The patient was brought to the Cardiac Catheterization Lab. The left and the right side of the neck and the subclavian area were cleaned and draped in a sterile fashion. 1% Xylocaine was used as the local anesthetic agent. [Left] subclavian venogram was performed by injecting 20 milliliters of Omnipaque through the left antecubital vein. A [left] subclavian venous access was obtained using a micropuncture needle system, under venographic guidance. . A two-inch long incision was made 2.0 centimeters below the midclavicular region. By sharp and blunt dissection, a pacemaker pocket was made. A second venous access was obtained using another micropuncture needle system. Over the first guidewire, a 7-Maldivian venous sheath with dilator was advanced. The venous dilator and the guidewire were taken out. A screw-in ventricular lead was advanced through the venous sheath and was positioned towards the right ventricle. Under fluoroscopic guidance, the ventricular lead was positioned toward the right ventricular apex. Good pacing and sensing thresholds were obtained. The lead was secured to the endocardium by advancing the helix. The stability of the lead was tested by gentle twisting movements and also by asking the patient to take some deep breaths and cough. The venous sheath was peeled off, at this time. The lead was secured to the pectoralis fascia, by suturing with 1-0 Surgilon. Over the second guidewire, another 7-Maldivian venous sheath with dilator was advanced. The dilator and the guidewire were taken out. Under fluoroscopic guidance, an atrial lead (Medtronic), was advanced and positioned toward the right atrium. The lead was positioned in the right atrial appendage. Good pacing and sensing thresholds were obtained. The lead was secured to the endocardium by advancing the helix. Stability of the lead was tested by gentle twisting movements and also by asking the patient to take some deep breaths and cough. The venous sheath was peeled off, at this time. The lead was secured to the pectoralis fascia by suturing with 0-Surgilon. The pacemaker pocket was copiously irrigated with vancomycin solution. Complete hemostasis was achieved. Sponge counts were confirmed. The leads were attached to a Medtronic generator. The leads were positioned behind the generator and the generator was attached to the pectoralis fascia by suturing with 0-Surgilon. The pocket was closed in layers. Skin was approximated using 4-0 Vicryl. IMPLANTED DEVICES: ATRIAL LEAD: Model number: 5076/[id number] Serial number: [id number] Make: Medtronic VENTRICULAR LEAD: Model number: 5076/58 Serial number: [id number] Make: Medtronic GENERATOR Brand: Sheri XT DR LINK LizabethToribiopaul Model number: [id number] Serial number: [id number] Make: Medtronic IMPLANTATION DATA: With the pacing system analyzer, the R wave sensing was 8.0 millivolts with a lead impedance of 750 and a pacing threshold was 0.5 volts at 0.5 milliseconds. In the atrium, the sensing was 2.5 millivolts with a lead impedance of 550 ohms and a pacing threshold was 0.7 volts at 0.5 milliseconds. Through the device, the R-wave sensing was 7.8 millivolts with a lead impedance of 720 and a pacing threshold was 0.6 volts at 0.4 milliseconds. The atrial sensing was 3.0 millivolts with a lead impedance of 520 ohms and a pacing threshold of 0.5 volts at 0.4 milliseconds. The pacemaker was set for AAIR/DDDR mode with upper rate of 130 and a lower rate of 60. A pressure dressing was applied over the pacemaker site. The patient was transferred to the Medical Floor in stable condition. A chest x-ray was ordered to confirm the lead position and also to rule out any pneumothorax.
[2021-11-18] VITALS: BP 107/60; PULSE 84; RESP 20; TEMP 36.7; O2SAT 96
[2021-11-18 02:33] LABS: Basophils % 0.4 %; Eosinophils # 0.2 10^3/uL (0.0-0.8); Hematocrit 45.4 % (42.0-52.0); Hemoglobin 15.8 g/dL (11.7-16.6); Lymphocytes # 1.8 10^3/uL (0.8-4.8); Lymphocytes % 22.4 %; Mean Corpuscular HGB Conc 34.8 g/dL (30.0-36.0); Mean Corpuscular Hemoglobin 29.9 pg (28.0-34.0); Mean Platelet Volume 10.2 fL (7.4-10.4); Monocytes # 1.2 10^3/uL (0.2-0.9); Monocytes % 14.2 %; Neutrophils # 4.86 10^3/uL (1.8-7.7); Neutrophils % 59.9 %; Nucleated Red Blood Cells % 0 %; Platelet Count 209 10^3/cmm (130-400); Red Blood Count 5.28 10^6/uL (4.1-5.3); Red Cell Distribution Width 13.7 % (12.1-15.1); White Blood Count 8.1 10^3/uL (4.0-10.0)
[2021-11-18 02:57] LABS: Anion Gap 17.4 (5-19); Blood Urea Nitrogen 24 mg/dL (8-23); Calcium 9.7 mg/dL (8.5-10.5); Carbon Dioxide 20 mmol/L (22-29); Chloride 100 mmol/L (98-107); Glucose 228 mg/dL (65-115); Osmolality Calculated 287 mOsm/kg (285-295); Potassium 4.4 mmol/L (3.5-5.1); Sodium 133 mmol/L (136-145)
[2021-11-18 04:00] VITALS: BP 112/83; PULSE 76; RESP 16; TEMP -12.7; TEMP 9; O2SAT 96
[2021-11-18] MEDS: isosorbide mononitrate ER 60 mg Tablet PO (04:31)
[2021-11-18 05:25] VITALS: PULSE 71
--- NOTE | 2021-11-18 06:00 | XRR_ITS ---
PROCEDURE INFORMATION: Exam: XR Chest Exam date and time: 11/18/2021 5:41 AM Age: 76 years old Clinical indication: Device placement; Cardiac pacemaker lead placement or adjustment; Prior surgery; Surgery type: Openheart; Additional info: Post permanent pacemaker placement; Visualize lead tip TECHNIQUE: Imaging protocol: XR of the chest. Views: 1 view. COMPARISON: CR XR chest 1V portable [id number] 11/17/2021 1:56 PM FINDINGS: Tubes, catheters and devices: Cardiac device noted overlying the left chest. Lungs: The lung parenchyma is clear. Pleural spaces: No pneumothorax. No pleural effusion. Heart/Mediastinum: The cardiomediastinal silhouette is within normal limits. Bones/joints: Median sternotomy wires noted. XR/XR chest 1V [id number] IMPRESSION: No acute cardiopulmonary abnormality identified.
--- NOTE | 2021-11-18 06:00 | ECG_ITS ---
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 Measurements Intervals [place] Rate: 76 P: 26 [place]: 186 QRS: -26 QRSD: 180 T: 74 QT: 446 QTc: 503 Interpretive Statements ELECTRONIC VENTRICULAR PACEMAKER ABNORMAL RHYTHM ECG Compared to ECG 11/16/2021 06:24:13 Myocardial infarct finding no longer present Electronically Signed On 11-18-2021 20:18:07 CDT by Bessie Velazquez M.D. [id number]
[2021-11-18] MEDS: acetaminophen 325 mg Tablet 650 MG PO (06:20)
[2021-11-18 08:00] VITALS: BP 163/80; PULSE 72; RESP 16; TEMP 36.8; O2SAT 94
[2021-11-18 08:43] VITALS: PULSE 89; O2SAT 95
[2021-11-18] MEDS: lisinopril 20 mg Tablet PO (09:08)
[2021-11-18] MEDS: venlafaxine ER (24HR) 150 mg Capsule PO (09:08)
[2021-11-18] MEDS: amlodipine 10 mg Tablet PO (09:08)
[2021-11-18] MEDS: insulin lispro 100 unit/1 mL SUBCUT (09:09)
--- NOTE | 2021-11-18 10:37 | PM.DCS ---
Discharge Providers Date of Admission: 11/15/21 22:42 Date of Discharge: November 18, 2021 Attending Provider at Admission: Linwood Bartlett MD Attending Provider at Discharge: Luis Alfredo Bingham Diagnoses at Discharge Discharge Diagnosis (1) Bradycardia: Status: Acute (2) Diabetes: Status: Acute (3) HTN (hypertension): Status: Acute (4) Mobitz (type) II atrioventricular block: Status: Acute (5) Complete heart block: Status: Acute Reason for Visit Reason for Visit: Dr sent due to heart monitor Hospital Course Hospital Course Pleasant 76-year-old gentleman with history of CAD, status post CABG, PCI, was sent in for evaluation due to bradycardia and heart block on heart monitor with noted high-grade AV block, Mobitz 2, short intervals of third-degree block, underwent additional assessment including cardiology, with recommendation for pacemaker placement, which was done uneventfully on 11/17. He is asked to follow-up with cardiology in office in 1 week for pacemaker check. Incidentally noted subclinical hypothyroidism, with TSH elevation to 6.09, but with normal free T4 and free T3. Please follow-up thyroid function in 3 weeks. Continue to optimize risk factors of cardiovascular disease. Physical Exam Narrative: Sitting up, having breakfast. Reports he is feeling great, denies any complaints, would like to go home. Const: COMMON NORMALS: alert GENERAL APPEARANCE: cooperative NUTRITIONAL APPEARANCE: overweight ORIENTATION/CONSCIOUSNESS: Yes awake HENMT: COMMON NORMALS: normocephalic, EAC's normal, Normal external nose present and moist oral mucous membranes HEAD & SCALP: normocephalic NOSE: Normal external nose present EXTERNAL AUDITORY CANAL: EAC's normal Neck/C-Spine: COMMON NORMALS: no meningeal signs Chest: CHEST: Yes Symmetrical chest wall rise OTHER: PPM L chest Resp: COMMON NORMALS: clear to auscultation bilaterally AUSCULTATION: clear to auscultation bilaterally Cardio: COMMON NORMALS: regular rate and No murmurs present (Cardio) RATE: regular rate GI: COMMON NORMALS: Normal to inspection, nondistended, normoactive bowel sounds present, Soft to palpation and non-tender PALPATION: Yes Soft to palpation Extremity: COMMON NORMALS: no pedal edema OTHER: LUE immobilizer in place. 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 Laboratory Results WBC 8.1 10^3/uL (4.0-10.0) 11/18/21 02:11 RBC 5.28 10^6/uL (4.1-5.3) 11/18/21 02:11 Hgb 15.8 g/dL (11.7-16.6) 11/18/21 02:11 Hct 45.4 % (42.0-52.0) 11/18/21 02:11 MCV 86.0 fl (80-94) 11/18/21 02:11 MCH 29.9 pg (28.0-34.0) 11/18/21 02:11 MCHC 34.8 g/dL (30.0-36.0) 11/18/21 02:11 RDW 13.7 % (12.1-15.1) 11/18/21 02:11 Plt Count 209 10^3/cmm (130-400) 11/18/21 02:11 MPV 10.2 fL (7.4-10.4) 11/18/21 02:11 Neut % (Auto) 59.9 % 11/18/21 02:11 Lymph % (Auto) 22.4 % 11/18/21 02:11 [place] % (Auto) 14.2 % 11/18/21 02:11 Eos % (Auto) 3.0 % 11/18/21 02:11 Baso % (Auto) 0.4 % 11/18/21 02:11 Neut # (Auto) 4.86 10^3/uL (1.8-7.7) 11/18/21 02:11 Lymph # (Auto) 1.8 10^3/uL (0.8-4.8) 11/18/21 02:11 [place] # (Auto) 1.2 10^3/uL (0.2-0.9) H 11/18/21 02:11 Eos # (Auto) 0.2 10^3/uL (0.0-0.8) 11/18/21 02:11 Baso # (Auto) 0.0 10^3/uL (0.0-0.1) 11/18/21 02:11 Nucleated RBC % (auto) 0 % 11/18/21 02:11 Nucleated RBCs # 0.0 /100WBC 11/18/21 02:11 Sodium 133 mmol/L (136-145) L 11/18/21 02:11 Potassium 4.4 mmol/L (3.5-5.1) 11/18/21 02:11 Chloride 100 mmol/L (98-107) 11/18/21 02:11 Carbon Dioxide 20 mmol/L (22-29) L 11/18/21 02:11 Anion Gap 17.4 (5-19) 11/18/21 02:11 BUN 24 mg/dL (8-23) H 11/18/21 02:11 Creatinine 1.0 mg/dL (0.7-1.2) 11/18/21 02:11 GFR Calculation Not Reportable 11/18/21 02:11 Glucose 228 mg/dL (65-115) H 11/18/21 02:11 POC Glucose 199 mg/dL (70-110) H 11/17/21 16:49 Calculated Osmolality 287 mOsm/kg (285-295) 11/18/21 02:11 Calcium 9.7 mg/dL (8.5-10.5) 11/18/21 02:11 Phosphorus 3.8 mg/dL (2.5-4.5) 11/15/21 20:58 Magnesium 2.0 mg/dL (1.7-2.3) 11/16/21 03:45 Total Bilirubin 0.4 mg/dL (0.15-1.2) 11/15/21 20:58 AST 23 U/L (0-40) 11/15/21 20:58 ALT 32 U/L (0-41) 11/15/21 20:58 Alkaline Phosphatase 131 IU/L (40-130) H 11/15/21 20:58 Troponin T Baseline 25 ng/L (0-15) H 11/15/21 20:58 Troponin T 120 Minute 21.90 ng/L (0-15) H 11/15/21 23:00 Delta Troponin T -3.10 ABS# (0-10) L 11/15/21 23:00 Troponin T Hi Sens 6Hr 27.11 ng/L (0-15) H 11/16/21 03:45 Troponin T Hi Sens 6Hr Delta 2.11 ng/L (0-12) 11/16/21 03:45 NT-Pro-B Natriuret Pep 64 pg/mL (0-450) 11/16/21 03:45 Total Protein 7.0 g/dL (6.6-8.7) 11/15/21 20:58 Albumin 4.3 g/dL (3.5-5.2) 11/15/21 20:58 Globulin 2.7 g/dL (1.3-4.6) 11/15/21 20:58 TSH 6.09 uIU/mL (0.27-4.20) H 11/16/21 03:45 Free T4 0.85 ng/dL (0.82-1.77) 11/16/21 03:45 Free T3 3.1 PG/ML (2.0-4.4) 11/16/21 03:45 Urine Color Yellow (Yellow) 11/16/21 01:55 Urine Appearance Clear (CLEAR) 11/16/21 01:55 Urine pH 5 (5-7) 11/16/21 01:55 Ur Specific [place] 1.015 (1.005-1.030) 11/16/21 01:55 Urine Protein Neg (Negative) 11/16/21 01:55 Urine Glucose (UA) Norm (Normal) 11/16/21 01:55 Urine Ketones Negative (Negative) 11/16/21 01:55 Urine Blood Neg (Negative) 11/16/21 01:55 Urine Nitrate Negative (Negative) 11/16/21 01:55 Urine Bilirubin Neg (Negative) 11/16/21 01:55 Urine Urobilinogen Norm mg/dL (Negative) 11/16/21 01:55 Ur Leukocyte Esterase Negative (Negative) 11/16/21 01:55 Vitals Last Vital Signs Temp 98.2 F 11/18/21 08:00 Pulse 89 11/18/21 08:43 Resp 16 11/18/21 08:00 BP 163/80 11/18/21 08:00 Pulse Ox 95 11/18/21 08:43 Discharge Plan Discharge Patient Disposition: Home Condition: Stable Prescriptions: Continued furosemide 10 mg PO QAM 0RF primidone 50 mg Tablet 25 mg PO QAM 0RF primidone 50 mg Tablet 100 mg PO QPM 0RF glipizide 10 mg Tablet 10 mg PO BID 0RF Rx Instructions: 10 mg orally at breakfast and lunch Lantus U-100 Insulin 35 units SUBCUT BID 0RF Vitamin D3 4,000 unit PO BEDTIME 0RF atorvastatin 20 mg PO BEDTIME 0RF loratadine 10 mg PO DAILY 0RF melatonin 6 mg PO BEDTIME 0RF mirabegron 25 mg PO BEDTIME 0RF naproxen 500 mg PO BIDWM 0RF tamsulosin 0.4 mg PO QPM 0RF lisinopril 20 mg Tablet 20 mg PO BID 0RF venlafaxine 150 mg Capsule,Extended Release 24hr 150 mg PO DAILY 0RF isosorbide mononitrate 60 mg Tablet Extended Release 24 Hr 60 mg PO QAM 0RF amlodipine 10 mg Tablet 10 mg PO DAILY 0RF finasteride 5 mg Tablet 5 mg PO QPM 0RF omega 3-pnu-rvk-fish oil [Fish Oil] 1,000 mg (120 mg-180 mg) Capsule 1 cap PO DAILY 0RF Discharge Orders: Discharge Order (Routine); Ordered 11/18/21 Ordered By: Luis Alfredo Bingham Referrals: Bessie Velazquez MD [Physician] - (3 weeks) Sonia Pierce [Referring] - 4-7 days Lucinda Ramos FNP [Nurse Practitioner] - 11/25/21 10:15 am Discharge Diet: Cardiac Discharge Activity: Increase activity as tolerated Patient Instructions: Opioid Safety, Post Pacemaker - Marcus Activity Restrictions/Additional Instructions: Please have your primary doctor follow-up your thyroid function in 3 weeks due to noted subclinical hypothyroidism, elevated TSH, but normal T4 and T3. Discharge Attestations Time Spent in Discharge Care*: greater than 30 min Quality Metrics Clinical Quality Measures [ No reported AMI, CVA or VTE this stay] Coding Level of Care Code Acute Chg FW DC note Diagnoses Bradycardia R00.1 Diabetes E11.9 HTN (hypertension) I10 Mobitz (type) II atrioventricular block I44.1 Complete heart block I44.2
[2021-11-18 10:39] VITALS: BP 126/68; PULSE 89; RESP 20; O2SAT 95
--- NOTE | 2021-11-18 17:01 | PC.SOCIAL ---
IMM UPDATED IMM dated and initialed and copy placed in chart and given to patient
== END 2021-11-18 11:55 | disposition home or self-care (01) | DRG 244 ==
LOC: ER 22:42 → MEDSURG 23:06
PROVIDERS: Internal Medicine Cardiovascular Disease; Admitting Provider Internal Medicine; Emergency Provider Emergency Medicine; Visit Provider Internal Medicine
PROC: 0JH606Z Insertion of Pacemaker, Dual Chamber into Chest Subcutaneous Tissue and Fascia, Open Approach (ICD-10-PCS; principal; 2021-11-17 09:10)
DX: I44.1 Atrioventricular block, second degree (principal); I25.10 Atherosclerotic heart disease of native coronary artery without angina pectoris; Z95.5 Presence of coronary angioplasty implant and graft; Z95.1 Presence of aortocoronary bypass graft; E11.9 Type 2 diabetes mellitus without complications; I10 Essential (primary) hypertension; N40.0 Benign prostatic hyperplasia without lower urinary tract symptoms; E78.5 Hyperlipidemia, unspecified; J40 Bronchitis, not specified as acute or chronic; E03.8 Other specified hypothyroidism; Z79.84 Long term (current) use of oral hypoglycemic drugs; Z79.4 Long term (current) use of insulin
CPT/HCPCS: 33208; 36415; 36416; 71045; 71046; 80048; 80053; 81003; 82962; 83735; 83880; 84100; 84439; 84443; 84481; 84484; 85025; 93005; 96360; 96361; 96372; 97165; 99152; 99153; 99285; C1769; C1779; C1786; C1894; C1898; J0461; J0690; J1815; J2250; J3010; J7030; J7050; Q9967

== ENCOUNTER → 2021-11-25 10:02 | Outpatient (BNVA) | payer OTHER, SELFPAY | PROVIDERS: Visit Provider Nurse Practitioner Family | DX: Z09 Encounter for follow-up examination after completed treatment for conditions other than malignant neoplasm (principal); Z95.0 Presence of cardiac pacemaker | CPT/HCPCS: 99213; 99214 ==

== ENCOUNTER → 2021-12-11 11:31 | Outpatient (BNVA) | payer OTHER, SELFPAY | PROVIDERS: PCP Family Medicine; Visit Provider Internal Medicine Cardiovascular Disease | DX: Z45.010 Encounter for checking and testing of cardiac pacemaker pulse generator [battery] (principal) | CPT/HCPCS: 93280 ==

== ENCOUNTER → 2021-12-18 10:59 | Outpatient (BNVA) | payer OTHER, SELFPAY | PROVIDERS: PCP Family Medicine; Visit Provider Internal Medicine Cardiovascular Disease | DX: Z09 Encounter for follow-up examination after completed treatment for conditions other than malignant neoplasm (principal); Z95.0 Presence of cardiac pacemaker; I44.1 Atrioventricular block, second degree; I25.10 Atherosclerotic heart disease of native coronary artery without angina pectoris; E11.9 Type 2 diabetes mellitus without complications; I10 Essential (primary) hypertension; Z95.1 Presence of aortocoronary bypass graft; Z79.4 Long term (current) use of insulin | CPT/HCPCS: 99213 ==

== ENCOUNTER → 2022-06-18 09:35 | Outpatient (BNVA) | payer OTHER, SELFPAY | PROVIDERS: PCP Family Medicine; Visit Provider Internal Medicine | DX: I10 Essential (primary) hypertension (principal); E11.9 Type 2 diabetes mellitus without complications; Z79.84 Long term (current) use of oral hypoglycemic drugs; Z95.0 Presence of cardiac pacemaker | CPT/HCPCS: 93280; 99214 ==

== ENCOUNTER → 2022-12-24 09:02 | Outpatient (BNVA) | payer OTHER, SELFPAY | PROVIDERS: PCP Family Medicine; Visit Provider Nurse Practitioner Family | DX: I25.10 Atherosclerotic heart disease of native coronary artery without angina pectoris (principal); I10 Essential (primary) hypertension; Z95.0 Presence of cardiac pacemaker; Z95.1 Presence of aortocoronary bypass graft | CPT/HCPCS: 99214 ==

== ENCOUNTER → 2023-02-17 14:38 | Outpatient (BNVA) | payer OTHER, SELFPAY | PROVIDERS: PCP Family Medicine; Visit Provider Internal Medicine Cardiovascular Disease | DX: Z45.010 Encounter for checking and testing of cardiac pacemaker pulse generator [battery] (principal) | CPT/HCPCS: 93296 ==

== ENCOUNTER → 2023-05-30 10:47 | Outpatient (BNVA) | payer OTHER, SELFPAY | PROVIDERS: PCP Family Medicine; Visit Provider Internal Medicine | DX: Z45.010 Encounter for checking and testing of cardiac pacemaker pulse generator [battery] (principal) | CPT/HCPCS: 93296 ==

== ENCOUNTER → 2023-08-04 08:08 | Outpatient (BNVA) | payer OTHER, SELFPAY | PROVIDERS: PCP Family Medicine; Visit Provider Podiatrist Foot & Ankle Surgery | DX: L60.3 Nail dystrophy (principal); G62.9 Polyneuropathy, unspecified; E11.42 Type 2 diabetes mellitus with diabetic polyneuropathy; Z79.4 Long term (current) use of insulin | CPT/HCPCS: 99203 ==

== ENCOUNTER → 2023-08-25 14:58 | Outpatient (BNVA) | payer OTHER, SELFPAY | PROVIDERS: PCP Family Medicine; Visit Provider Internal Medicine | DX: I10 Essential (primary) hypertension (principal); E11.9 Type 2 diabetes mellitus without complications; Z95.0 Presence of cardiac pacemaker; Z79.84 Long term (current) use of oral hypoglycemic drugs | CPT/HCPCS: 99213 ==

== ENCOUNTER → 2023-10-06 07:58 | Outpatient (BNVA) | payer OTHER, SELFPAY | PROVIDERS: PCP Family Medicine; Visit Provider Podiatrist Foot & Ankle Surgery | DX: L60.3 Nail dystrophy (principal); G62.9 Polyneuropathy, unspecified; E11.42 Type 2 diabetes mellitus with diabetic polyneuropathy | CPT/HCPCS: 11055; 11721 ==

== ENCOUNTER → 2023-12-08 08:08 | Outpatient (BNVA) | payer OTHER, SELFPAY | PROVIDERS: PCP Family Medicine; Visit Provider Podiatrist Foot & Ankle Surgery | DX: L60.3 Nail dystrophy (principal); E11.42 Type 2 diabetes mellitus with diabetic polyneuropathy; G62.9 Polyneuropathy, unspecified | CPT/HCPCS: 11721 ==

== ENCOUNTER → 2024-02-16 08:00 | Outpatient (BNVA) | payer OTHER, SELFPAY | PROVIDERS: PCP Family Medicine; Visit Provider Podiatrist Foot & Ankle Surgery | DX: L60.3 Nail dystrophy (principal); G62.9 Polyneuropathy, unspecified; E11.42 Type 2 diabetes mellitus with diabetic polyneuropathy; Z79.4 Long term (current) use of insulin | CPT/HCPCS: 11721 ==

== ENCOUNTER → 2024-04-19 09:18 | Outpatient (BNVA) | payer OTHER, SELFPAY | PROVIDERS: PCP Family Medicine; Visit Provider Podiatrist Foot & Ankle Surgery | DX: L60.3 Nail dystrophy (principal); G62.9 Polyneuropathy, unspecified; E11.42 Type 2 diabetes mellitus with diabetic polyneuropathy; Z79.4 Long term (current) use of insulin | CPT/HCPCS: 11721 ==

== ENCOUNTER → 2024-05-23 14:56 | Outpatient (BNVA) | payer OTHER, SELFPAY | PROVIDERS: PCP Family Medicine; Visit Provider Internal Medicine | DX: I10 Essential (primary) hypertension (principal); E11.9 Type 2 diabetes mellitus without complications; Z95.1 Presence of aortocoronary bypass graft; Z95.0 Presence of cardiac pacemaker | CPT/HCPCS: 99214 ==

== ENCOUNTER 2024-06-30 08:43 | Emergency (ER) | payer OTHER, MEDICARE, SELFPAY ==
[2024-06-30 09:37] VITALS: BP 126/67; PULSE 79; RESP 17; TEMP 36.7; O2SAT 95; BMI 31.8
--- NOTE | 2024-06-30 09:59 | ED_ITS ---
HPI - Skin/Abscess/Foreign Bdy General: Chief complaint: Skin/Abscess/Foreign Body Stated complaint: Sore on lft ankle Time Seen by Provider: 06/30/24 09:53 Source: patient Mode of arrival: ambulatory Limitations: no limitations History of Present Illness: 79-year-old male states he had an ulcer to his left lateral foot has been going on for roughly a month. He states he had some increasing redness he denies any drainage denies any fevers she denies any pain he does have a history of diabetes. He has not been seen for this he does have an appointment with Dr. Jiménez on Associated symptoms: Deny chills, fever(s), nausea or vomiting Related Data Home Medications Medication Instructions Recorded Confirmed Lantus U-100 Insulin 35 units SUBCUT BID 10/28/21 05/23/24 Vitamin D3 4,000 unit PO BEDTIME 10/28/21 05/23/24 amlodipine 10 mg tablet 10 mg PO DAILY 10/28/21 05/23/24 atorvastatin 20 mg PO BEDTIME 10/28/21 05/23/24 finasteride 5 mg tablet 5 mg PO QPM 10/28/21 05/23/24 furosemide 10 mg PO QAM 10/28/21 05/23/24 isosorbide mononitrate 60 mg 60 mg PO QAM 10/28/21 05/23/24 tablet,extended release 24 hr lisinopril 20 mg tablet 20 mg PO BID 10/28/21 05/23/24 loratadine 10 mg PO DAILY 10/28/21 05/23/24 naproxen 500 mg PO BIDWM 10/28/21 05/23/24 omega 0-hyk-swq-fish oil 1,000 mg 1 cap PO DAILY 10/28/21 05/23/24 (120 mg-180 mg) capsule (Fish Oil) primidone 50 mg tablet 25 mg PO QAM 10/28/21 05/23/24 primidone 50 mg tablet 100 mg PO QPM 10/28/21 05/23/24 tamsulosin 0.4 mg PO QPM 10/28/21 05/23/24 venlafaxine 150 mg 150 mg PO DAILY 10/28/21 05/23/24 capsule,extended release 24 hr empagliflozin 25 mg tablet 25 mg PO DAILY 08/25/23 05/23/24 (Jardiance) glimepiride 4 mg tablet 8 mg PO QAM 08/25/23 05/23/24 mirabegron 50 mg PO BEDTIME 08/25/23 05/23/24 melatonin 3 mg capsule 6 mg PO DAILY 05/23/24 05/23/24 jeahkeqa-nei-omiws9 250 mg-dha 90 1 cap PO DAILY 05/23/24 05/23/24 mg-epa 160 nc-xogs-kqac-zeax capsule (Ocuvite Adult 50 Plus) Previous Rx's Medication Instructions Recorded diabetic shoes with 3 inserts #1 ea 08/04/23 sulfamethoxazole 800 1 tab PO BID 10 days #20 tabs 06/30/24 mg-trimethoprim 160 mg tablet (Bactrim DS) Allergies Allergy/AdvReac Type Severity Reaction Status Date / Time morphine Allergy Unknown Unknown Verified 05/23/24 16:19 Review of Systems Const: Denies: fever(s), chills, body aches or change in appetite ENMT: Denies: throat pain or dental pain Card: Denies: chest pain Resp: Denies: dyspnea GI: Denies: abdominal pain, nausea, vomiting or diarrhea Musc: Denies: neck pain or back pain Skin/Breast: Denies: rash Neuro: Denies: headache(s) All/Imm: Denies: urticaria PFSH ED PFSH: Medical History Pacemaker Atherosclerosis of coronary artery of [place] heart without angina pectoris Symptomatic bradycardia High degree atrioventricular block Complete heart block Mobitz (type) II atrioventricular block Bradycardia Resting tremor Redness of both eyes Bronchitis HTN (hypertension) Diabetes CAD (coronary artery disease) 3 stents Draper's cyst of knee Primary osteoarthritis of right knee Surgical History H/O hernia repair S/P CABG (coronary artery bypass graft) 2013 Family History Father Cancer Lung cancer Social History Smoking and tobacco/nicotine status: never used tobacco/nicotine Alcohol intake: never Substance/Drug Use: never Physical Exam Const: COMMON NORMALS: no acute distress, patient oriented x3 and healthy appearing HENMT: COMMON NORMALS: normocephalic and atraumatic HEAD & SCALP: normocephalic and atraumatic Neck/C-Spine: COMMON NORMALS: full ROM and supple Chest: COMMONS NORMALS: normal inspection of the chest Resp: COMMON NORMALS: normal respiratory effort Cardio: COMMON NORMALS: regular rate RATE: regular rate Extremity: NARRATIVE EXTREMITY EXAM: Slight erythema to left lateral foot Neuro: COMMON NORMALS: patient oriented x3, moves all extremities and no focal motor deficits Psych: COMMON NORMALS: mental status grossly normal, Normal thought process present and cooperative THOUGHT PROCESS: Normal thought process present Skin: COMMON NORMALS: no rashes or lesions noted and no wounds GENERAL SKIN EXAM: no rashes or lesions noted Course Vital Signs: Vital signs: Vital Signs Temperature 98.1 F 06/30/24 09:37 Pulse Rate 77 06/30/24 10:05 Respiratory Rate 17 06/30/24 09:37 Blood Pressure 141/65 06/30/24 10:05 Pulse Oximetry 96 06/30/24 10:05 Oxygen Delivery Me thod Room Air 06/30/24 09:37 MDM - Skin/Abscess/Foreign Bdy Medicial Decision Making Patient presents with foot ulcer to left lateral foot no signs of abscess he is some slight erythema no necrosis he has appointment with podiatry on we will place him on antibiotics he stable for discharge Medical Records I reviewed the patient's medical records. No radiology studies performed this visit Discharge Plan Discharge Patient Disposition: Home Clinical Impression: Foot ulcer Condition: Stable Prescriptions: New sulfamethoxazole-trimethoprim [Bactrim DS] 800-160 mg tablet 1 tab PO BID 10 Days Qty: 20 0RF No Action glimepiride 4 mg tablet 8 mg PO QAM Rx Instructions: administer with breakfast Jardiance 25 mg tablet 25 mg PO DAILY (DME) diabetic shoes with 3 inserts See Rx Instructions .Route .MEDSUPPLY Qty: 1 0RF Rx Instructions: As directed to the shoe guys melatonin 3 mg capsule 6 mg PO DAILY Ocuvite Adult 50 Plus 250 mg (90 mg-160 mg) capsule 1 cap PO DAILY furosemide 10 mg PO QAM primidone 50 mg Tablet 25 mg PO QAM primidone 50 mg Tablet 100 mg PO QPM Lantus U-100 Insulin 35 units SUBCUT BID Vitamin D3 4,000 unit PO BEDTIME atorvastatin 20 mg PO BEDTIME loratadine 10 mg PO DAILY naproxen 500 mg PO BIDWM tamsulosin 0.4 mg PO QPM lisinopril 20 mg Tablet 20 mg PO BID venlafaxine 150 mg Capsule,Extended Release 24hr 150 mg PO DAILY isosorbide mononitrate 60 mg Tablet Extended Release 24 Hr 60 mg PO QAM amlodipine 10 mg Tablet 10 mg PO DAILY finasteride 5 mg Tablet 5 mg PO QPM omega 2-otj-sqi-fish oil [Fish Oil] 1,000 mg (120 mg-180 mg) Capsule 1 cap PO DAILY mirabegron 50 mg PO BEDTIME Discharge Orders: Discharge ED (Routine); Ordered 06/30/24 Ordered By: Dante Wyatt Referrals: Tina Stoddard MD [Primary Care Provider] - Dionicio Llanos DPM [Physician] - 4-7 days Discharge Diet: Advance as tolerated Discharge Activity: Resume usual activity Patient Instructions: Foot Ulcers in a Person with Diabetes (ED) Coding Level of Care Code ED Machine Feeder Raw Stock for Shellie Diego
[2024-06-30 10:05] VITALS: BP 141/65; PULSE 77; O2SAT 96
== END 2024-06-30 10:06 | disposition home or self-care (01) ==
PROVIDERS: Emergency Provider Emergency Medicine; PCP Family Medicine
DX: E11.621 Type 2 diabetes mellitus with foot ulcer (principal); L97.529 Non-pressure chronic ulcer of other part of left foot with unspecified severity; I10 Essential (primary) hypertension; E78.5 Hyperlipidemia, unspecified; I25.10 Atherosclerotic heart disease of native coronary artery without angina pectoris; Z95.0 Presence of cardiac pacemaker; Z95.1 Presence of aortocoronary bypass graft
CPT/HCPCS: 99283

== ENCOUNTER → 2024-07-05 09:09 | Outpatient (BNVA) | payer OTHER, MEDICARE, SELFPAY | PROVIDERS: PCP Family Medicine; Visit Provider Podiatrist Foot & Ankle Surgery | DX: I73.9 Peripheral vascular disease, unspecified (principal); I25.10 Atherosclerotic heart disease of native coronary artery without angina pectoris; L60.3 Nail dystrophy; G62.9 Polyneuropathy, unspecified; E11.42 Type 2 diabetes mellitus with diabetic polyneuropathy; E11.621 Type 2 diabetes mellitus with foot ulcer; L97.328 Non-pressure chronic ulcer of left ankle with other specified severity; Z79.4 Long term (current) use of insulin | CPT/HCPCS: 11721; 99213 ==

== ENCOUNTER → 2024-07-11 10:04 | Outpatient (BNVA) | payer OTHER, SELFPAY | PROVIDERS: PCP Family Medicine; Visit Provider Internal Medicine Cardiovascular Disease | DX: Z45.018 Encounter for adjustment and management of other part of cardiac pacemaker (principal) | CPT/HCPCS: 93296 ==

== ENCOUNTER → 2024-07-12 08:57 | Outpatient (BNVA) | payer OTHER, SELFPAY | PROVIDERS: PCP Family Medicine; Visit Provider Podiatrist Foot & Ankle Surgery | DX: E11.622 Type 2 diabetes mellitus with other skin ulcer (principal); L97.322 Non-pressure chronic ulcer of left ankle with fat layer exposed; L60.3 Nail dystrophy; G62.9 Polyneuropathy, unspecified; E11.42 Type 2 diabetes mellitus with diabetic polyneuropathy; Z79.4 Long term (current) use of insulin | CPT/HCPCS: 11042 ==

== ENCOUNTER 2024-07-17 09:27 | Outpatient (CLI) | payer OTHER, SELFPAY ==
--- NOTE | 2024-07-17 09:45 | USR_ITS ---
PROCEDURE INFORMATION: Exam: US Non-Invasive Physiologic Bilateral Lower Extremities Arteries, Complete Exam date and time: 07/17/2024 10:39 AM Age: 79 years old Clinical indication: Condition or disease; Other: Pad TECHNIQUE: Imaging protocol: Complete bilateral noninvasive physiologic studies of lower extremity arteries, 3 or more levels or single level study with provocative functional maneuvers. Waveforms were obtained and evaluated. Images were documented and archived. Exam is complete. COMPARISON: No relevant prior studies available. FINDINGS: Right brachial pressure is 91. Right digital pressure is 71. The right TBI is 0.78. Left brachial pressure 91. Left digital pressure 77. Left TBI 0.85. US/CV segpressure LE [facility] [id number] IMPRESSION: 1. TBI measurements within normal limits.
== END 2024-07-17 09:28 | disposition home or self-care (01) ==
PROVIDERS: PCP Family Medicine; Visit Provider Podiatrist Foot & Ankle Surgery
DX: I25.10 Atherosclerotic heart disease of native coronary artery without angina pectoris (principal); I73.9 Peripheral vascular disease, unspecified
CPT/HCPCS: 93923

== ENCOUNTER 2024-08-02 09:14 | Outpatient (CLI) | payer OTHER, SELFPAY ==
--- NOTE | 2024-08-02 09:20 | US_ITS ---
WS: [id number] RENAL ULTRASOUND HISTORY: CKD COMPARISON: None available. TECHNIQUE: 2-D and color Doppler imaging of the kidney submitted. Right kidney: 11.0 cm x 6.1 cm x 5.9 cm. Cortex: 1.2 cm Normal echogenicity with no hydronephrosis or mass. Left kidney: 10.9 cm x 5.1 cm x 5.4 cm. Cortex: 1.1 cm Normal echogenicity with no hydronephrosis or mass. Aorta: Normal. Urinary Bladder: Normal distention. US/US renal BI* [id number] IMPRESSION: Normal renal ultrasound.
== END 2024-08-02 09:15 | disposition home or self-care (01) ==
PROVIDERS: PCP Family Medicine; Visit Provider Internal Medicine
DX: E11.621 Type 2 diabetes mellitus with foot ulcer (principal); L97.322 Non-pressure chronic ulcer of left ankle with fat layer exposed; L60.3 Nail dystrophy; E11.42 Type 2 diabetes mellitus with diabetic polyneuropathy; G62.9 Polyneuropathy, unspecified; Z79.4 Long term (current) use of insulin; N17.9 Acute kidney failure, unspecified
CPT/HCPCS: 76770; 99213

== ENCOUNTER → 2024-08-09 09:49 | Outpatient (BNVA) | payer OTHER, SELFPAY | PROVIDERS: PCP Family Medicine; Visit Provider Internal Medicine | DX: I10 Essential (primary) hypertension (principal); E11.9 Type 2 diabetes mellitus without complications; Z95.1 Presence of aortocoronary bypass graft; Z95.0 Presence of cardiac pacemaker; Z79.4 Long term (current) use of insulin | CPT/HCPCS: 99214 ==

== ENCOUNTER → 2024-08-14 15:53 | Outpatient (BNVA) | payer OTHER, SELFPAY | PROVIDERS: PCP Family Medicine; Visit Provider Podiatrist Foot & Ankle Surgery | DX: L97.309 Non-pressure chronic ulcer of unspecified ankle with unspecified severity (principal) | CPT/HCPCS: 87070; 87075; 87077; 87186; 87205; 99213 ==

== ENCOUNTER → 2024-08-30 09:07 | Outpatient (BNVA) | payer OTHER, SELFPAY | PROVIDERS: PCP Family Medicine; Visit Provider Podiatrist Foot & Ankle Surgery | DX: E11.622 Type 2 diabetes mellitus with other skin ulcer (principal); L97.322 Non-pressure chronic ulcer of left ankle with fat layer exposed; L60.3 Nail dystrophy; G62.9 Polyneuropathy, unspecified; E11.42 Type 2 diabetes mellitus with diabetic polyneuropathy | CPT/HCPCS: 99213 ==

== ENCOUNTER → 2024-10-10 12:17 | Outpatient (BNVA) | payer OTHER, SELFPAY | PROVIDERS: PCP Family Medicine; Visit Provider Internal Medicine Cardiovascular Disease | DX: Z45.018 Encounter for adjustment and management of other part of cardiac pacemaker (principal) | CPT/HCPCS: 93296 ==

== ENCOUNTER → 2024-11-01 09:10 | Outpatient (BNVA) | payer OTHER, SELFPAY | PROVIDERS: PCP Family Medicine; Visit Provider Podiatrist Foot & Ankle Surgery | DX: E11.42 Type 2 diabetes mellitus with diabetic polyneuropathy (principal); L60.3 Nail dystrophy; L84 Corns and callosities; G62.9 Polyneuropathy, unspecified; Z79.4 Long term (current) use of insulin | CPT/HCPCS: 11055; 11721 ==

== ENCOUNTER → 2025-01-03 08:54 | Outpatient (BNVA) | payer OTHER, SELFPAY | PROVIDERS: PCP Family Medicine; Visit Provider Podiatrist Foot & Ankle Surgery | DX: E11.42 Type 2 diabetes mellitus with diabetic polyneuropathy (principal); L60.3 Nail dystrophy; L84 Corns and callosities; G62.9 Polyneuropathy, unspecified; E11.8 Type 2 diabetes mellitus with unspecified complications; Z79.4 Long term (current) use of insulin | CPT/HCPCS: 11055; 11721 ==

== ENCOUNTER 2025-01-30 13:42 | Emergency (ER) | payer OTHER, MEDICARE, SELFPAY ==
--- OUTSIDE RECORDS SUMMARY | 2024-09-19 04:00 | XMS_ITS ---
Author Organization [facility] Address [address] [place] [id number] Care Team Providers Care Pillow Filler Name Role Phone AZAEL COLMENARES, EKATERINA Primary Care Provider Unavail able Lia Dykes Unavailable [phone] Jaya COLMENARES, Tina Unavailable Unavailabl e REASON FOR VISIT CKD Stage 3 Encounters Encounter Location Date Provider Diagnosis [facility] [address] [place] [address] Dr Alvarado-[address] [place] [phone] 09/19/2024 Lia Dykes Plan Of Treatment Next Appt Details Provider Name:Prateek Priest, 04/18/2025 02:00:00 PM, [address] [place] [address] Shawn Perez, [place], [address], Progress Notes * ALYSSANEELDOB:1945 ([age] yo M)Acc No.[id number]:09/19/2024 Progress Notes Patient: NEEL SESAY Provider: Norma Dykes CNP :1945 A ge:79 Y S ex:Male Date:09/19/2024 Address:[address] [place], [phone] Pcp:EKATERINA ADDISON MD Subjective: * Chief Complaints: * C KD Stage 3 * Electronic signature of Stefan Dykes CNP on 01/30/2025 at 01:49 PM CDT Sign off status: Pending * Provider: Norma Dykes CNP Date: 0 09/19/2024 Generated for Jose almeida/Gerald/Abigail on: 0 01/30/2025 01:49 PM CDT
--- NOTE | 2025-01-30 13:46 | ECG_ITS ---
[facility] Test Date: 2025-01-30 Pat Name: Aristeo José Department: Room: Gender: Male Resource Conservationist: : 1945 Requested By: Dante Wyatt Order Number: [id number] Anderson MD: Oswaldo Carlin M.D. Measurements Intervals [place] Rate: 92 P: 85 NH: 172 QRS: -73 QRSD: 190 T: 91 QT: 414 QTc: 515 Interpretive Statements ELECTRONIC VENTRICULAR PACEMAKER Compared to ECG 11/18/2021 06:25:40 No significant changes Electronically Signed On 02-02-2025 08:52:06 CDT by Oswaldo Carlin M.D. [email or web address] [id number]
--- OUTSIDE RECORDS SUMMARY | 2025-01-30 13:49 | XMS_ITS | Clinical Summary ---
Author Organization [facility] Address [address] [facility] Attn: Epic Prelude ADT QUENTIN NEGRETE [phone] Care Team Providers Care Gum Machine Filler Name Role Phone Unavailable Primary Care Provider Unavailabl e Allergies Active Allergy Reactions Criticality Noted Date Comments Morphine Delirium Medium 2014 Medications acetaminophen/di phenhydramine (TYLENOL PM ORAL) Take 500 mg by mouth daily at bedtime. 07/05/2014 Active docusate sodium (COLACE) 100 mg capsule Take 100 mg by mouth daily at bedtime. 07/05/2014 Active Active Problems Problem Noted Date Diagnosed Date BPH (benign prostatic hypertrophy) 06/07/2014 DM (diabetes mellitus) 06/06/2014 Obesity (BMI 30.0-34.9) 06/06/2014 HTN (hypertension) 06/06/2014 Angina effort 2014 CAD (coronary artery disease) 2014 Immunizations Immunization Administration Dates Next Due (PREVNAR 13)(6 WKS UP) PNEUM OCOCCAL CONJUGATE (PCV13) 0.5 ML, IM 06/08/2014 Family History Medical History Relation Name Comments Heart Disease Father Healthy Mother Relation Name Status Comments Father Mother Social History Tobacco Use Types Packs/Day Years Used Date Smoking Tobacco: Never Alcohol Use Standard Drinks/Week Comments No 0 (1 standard drink = 0.6 oz pur e alcohol) Sex and Gender Information Value Date Recorded Sex Assigned at Not on file Legal 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 Gender Identity Not on file Sexual Orientation Not on file Last Filed Vital Signs Vital Sign Reading Time Taken Comments Blood Pressure 140/76 07/05/2014 1:59 PM SET UP 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 Pulse 94 07/05/2014 1:59 PM SET UP MACHINIST Temperature - - Respiratory Rate - - Oxygen Saturation - - Inhaled Oxygen Concentration - - Weight 83.9 kg (185 lb) 07/05/2014 1:59 PM SET UP MACHINIST Height 170.2 cm (5' 7 ) 07/05/2014 1:59 PM SET UP MACHINIST Body Mass Index 28.97 07/05/2014 1:59 PM SET UP 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 Plan of Treatment Health Maintenance Due Date Last Done Comments DIABETES ANNUAL FOOT EXAM 1964 DIABETES ANNUAL RETINAL EXAM 1964 DIABETES MICROALBUMIN ANNUAL SCREEN 1964 LDL CHOLESTEROL ANNUAL 1964 DTAP/TDAP/TD VACCINES (1 - Tdap) 1965 ZOSTER VACCINE (1 of 2) 1996 PNEUMOCOCCAL VACCINE 50+ YEA RS (2 of 2 - PPSV23, PCV20, or PCV21) 08/03/2014 06/08/2014 DIABETES HBA1C Q 6 MONTHS 12/05/2014 06/06/2014, RSV VACCINE (60+ or ) (1 - 1-dose 75+ series) 2021 INFLUENZA VACCINE (#1) 2025 Medical Devices Implanted Type Area Building Construction Inspector Device Identifier Shelf Expiration Date Model / Serial / Lot Mouthcard Ptfe Thck 1.6mmx2.5x2.5cm [id number] - [id number] Implanted:Qty: 1 on 06/06/2014 Graft CR [employer]ARD- [employer] [id number] / /
[2025-01-30 13:51] VITALS: BP 155/77; PULSE 96; RESP 16; TEMP 36.7; O2SAT 94
[2025-01-30 15:48] LABS: Hematocrit 51.0 % (37-53); Hemoglobin 16.90 g/dL (11.27-16.99); Mean Corpuscular HGB Conc 33.1 g/dL (30-55); Mean Corpuscular Hemoglobin 28.8 pg (27-33); Mean Corpuscular Volume 87.0 fl (82-101); Nucleated Red Blood Cells % 0 %; Platelet Count 231 10^3/cmm (157-399); Red Blood Count 5.86 10^6/uL (3.85-5.65); White Blood Count 8.05 10^3/uL (3.29-11.43)
[2025-01-30 16:10] LABS: Alanine Aminotransferase 25 U/L (0-41); Albumin Level 4.0 g/dL (3.5-5.2); Alkaline Phosphatase 149 U/L (40-130); Anion Gap 16.3 (5-19); Aspartate Amino Transferase 17 U/L (0-40); Blood Urea Nitrogen 41 mg/dL (8-23); Calcium 9.9 mg/dL (8.5-10.5); Carbon Dioxide 23 mmol/L (22-29); Chloride 101 mmol/L (98-107); Creatinine Clr Calc Pharmacy 47.0484; Globulin 4.0 g/dL (1.3-4.6); Glucose 155 mg/dL (65-115); Osmolality Calculated 295 mOsm/kg (285-295); Potassium 4.3 mmol/L (3.5-5.1); Sodium 136 mmol/L (136-145); Total Protein 8.0 g/dL (6.6-8.7)
[2025-01-30 18:47] VITALS: BP 145/90; PULSE 93; O2SAT 95
--- NOTE | 2025-01-30 18:56 | XRR_ITS ---
PROCEDURE INFORMATION: Exam: XR Chest Exam date and time: 01/30/2025 7:02 PM Age: 79 years old Clinical indication: Other: Syncope TECHNIQUE: Imaging protocol: Radiologic exam of the chest. Views: 1 view. COMPARISON: CR XR chest 1V [id number] 11/18/2021 5:41 AM FINDINGS: Lungs: Unremarkable. No consolidation. Minor areas of bibasilar atelectasis or scarring. Pleural spaces: Unremarkable. No pleural effusion. No pneumothorax. Heart/Mediastinum: CABG with vascular calcification and left-sided pacing device. No cardiomegaly. Bones/joints: Unremarkable. XR/XR chest 1V portable [id number] IMPRESSION: No acute findings.
--- NOTE | 2025-01-30 18:56 | CTR_ITS ---
PROCEDURE INFORMATION: Exam: CT Head Without Contrast Exam date and time: 01/30/2025 7:30 PM Age: 79 years old Clinical indication: Injury or trauma; Blunt trauma (contusions or hematomas); Without loss of consciousness; Injury details: Fall hitting posterior head. C. O headache; Additional info: Head injury TECHNIQUE: Imaging protocol: Computed tomography of the head without contrast. Radiation optimization: All CT scans at this facility use at least one of these dose optimization techniques: automated exposure control; mA and/or kV adjustment per patient size (includes targeted exams where dose is matched to clinical indication); or iterative reconstruction. COMPARISON: No relevant prior studies available. RADIATION DOSE METRICS: Total DLP (mGy-cm): 1061.58 FINDINGS: Brain: No focal hemorrhage or midline shift is identified. The ventricles and parenchyma show moderate atrophy and chronic bicerebral white matter ischemic change. A few scattered old lacunes are likely. Cerebral ventricles: No ventriculomegaly or evidence of hydrocephalus. Paranasal sinuses: The partially assessed sinuses are grossly clear. Mastoid air cells: Visualized mastoid air cells are well aerated. Bones: No displaced skull fracture is noted. Soft tissues: Unremarkable. Vasculature: Diffuse vascular calcifications are present. CT/CT head wo con* [id number] IMPRESSION: 1. No acute intracranial abnormality. 2. Moderate age-related changes.
--- NOTE | 2025-01-30 18:57 | ECG_ITS ---
[facility] Test Date: 2025-01-30 Pat Name: Aristeo José Department: Room: Gender: Male Credit Risk Officer: : 1945 Requested By: Sky Davenport Order Number: [id number] Justin MD: Oswaldo Carlin M.D. Measurements Intervals [place] Rate: 94 P: 45 ND: 169 QRS: -64 QRSD: 190 T: 106 QT: 426 QTc: 535 Interpretive Statements ELECTRONIC VENTRICULAR PACEMAKER Compared to ECG 01/30/2025 13:55:31 No significant changes Electronically Signed On 02-02-2025 08:51:18 CDT by Oswaldo Carlin M.D. [email or web address]
[2025-01-30 19:26] VITALS: BP 137/84; PULSE 92; O2SAT 94
[2025-01-30 20:31] VITALS: BP 131/79; PULSE 89; O2SAT 94
[2025-01-30 20:31] LABS: Troponin(5th) Baseline 28 ng/L (0-15)
[2025-01-30 20:36] LABS: NT Pro B Type Natriuretic Pept 727 pg/mL (0-450)
--- NOTE | 2025-01-30 21:02 | W.ED.SYNCOPE ---
HPI - Syncope General: Chief Complaint: Syncope Stated Complaint: Passed out Pace Macker Time Seen by Provider: 01/30/25 18:40 History of Present Illness: This patient is a 79-year-old white male who presents to the emergency department for evaluation of a syncopal episode today. His family is here with him but they did not went to witness the episode. Patient does have a home health aide which witnessed the event. Around 11:45 AM today the patient passed out and struck his head against the refrigerator. Patient does not remember the event but he does have dementia. Family noted a bruise on the back of his head. He is not on any blood thinners. Patient does not recall having any chest pain or shortness of breath. He states he is feeling fine now. Does not have any pain anywhere. He does have a history of coronary artery disease, hypertension, insulin-dependent diabetes and dementia. He does have a Medtronic pacemaker. Associated symptoms: Deny abdominal pain, chest pain, fever(s) or nausea Related Data Home Medications ?Medication ?Instructions ?Recorded ?Confirmed amlodipine 10 mg tablet 10 mg PO DAILY 10/28/21 01/03/25 atorvastatin 20 mg PO BEDTIME 10/28/21 01/03/25 finasteride 5 mg tablet 5 mg PO QPM 10/28/21 01/03/25 furosemide 10 mg PO QAM 10/28/21 01/03/25 isosorbide mononitrate 60 mg 60 mg PO QAM 10/28/21 01/03/25 tablet,extended release 24 hr lisinopril 20 mg tablet 20 mg PO BID 10/28/21 01/03/25 loratadine 10 mg PO DAILY 10/28/21 01/03/25 naproxen 500 mg PO BIDWM 10/28/21 01/03/25 omega 8-cpt-tha-fish oil 1,000 mg 1 cap PO DAILY 10/28/21 01/03/25 (120 mg-180 mg) capsule (Fish Oil) primidone 50 mg tablet 25 mg PO QAM 10/28/21 01/03/25 primidone 50 mg tablet 100 mg PO QPM 10/28/21 01/03/25 tamsulosin 0.4 mg PO QPM 10/28/21 01/03/25 venlafaxine 150 mg 150 mg PO DAILY 10/28/21 01/03/25 capsule,extended release 24 hr empagliflozin 25 mg tablet 25 mg PO DAILY 08/25/23 01/03/25 (Jardiance) glimepiride 4 mg tablet 8 mg PO QAM 08/25/23 01/03/25 mirabegron 50 mg PO BEDTIME 08/25/23 01/03/25 melatonin 3 mg capsule 6 mg PO DAILY 05/23/24 01/03/25 jtggcdxy-mzz-rsejg0 250 mg-dha 90 1 cap PO DAILY 05/23/24 01/03/25 mg-epa 160 ra-fxxh-gfpg-zeax capsule (Ocuvite Adult 50 Plus) cholecalciferol (vitamin D3) 50 100 mcg PO DAILY 08/09/24 01/03/25 mcg (2,000 unit) capsule insulin glargine-yfgn 100 unit/mL 35 unit SUBCUT BID 08/09/24 01/03/25 (3 mL) subcutaneous pen Previous Rx's ?Medication ?Instructions ?Recorded diabetic shoes with 3 inserts #1 ea 08/04/23 cephalexin 500 mg capsule 500 mg PO TID #21 caps 08/14/24 Allergies Allergy/AdvReac Type Severity Reaction Status Date / Time morphine Allergy Unknown Unknown Verified 01/03/25 09:07 metformin Allergy ADR-Diarrhe Verified 01/03/25 09:07 a Review of Systems General: Reports: 10 or more systems reviewed and unremarkable except in HPI and below Const: Denies: fever(s), chills or fatigue Eyes: Denies: change in vision Card: Reports: swelling of feet/ankles; Denies: chest pain or palpitations Resp: Denies: dyspnea GI: Denies: abdominal pain, nausea, vomiting, diarrhea or constipation : Denies: flank pain Musc: Reports: extremity pain Skin/Breast: Reports: changes in skin color and nail changes; Denies: sores Neuro: Reports: difficulty walking; Denies: numbness in extremities Psych: Denies: suicidal ideation Colin/Lymph: Denies: easy bruising PFS ED PFSH: Medical History (Updated 01/30/25 @ 21:01 by Sky Davenport MD) Pacemaker Atherosclerosis of coronary artery of [place] heart without angina pectoris Symptomatic bradycardia High degree atrioventricular block Complete heart block Mobitz (type) II atrioventricular block Bradycardia Resting tremor Redness of both eyes Bronchitis HTN (hypertension) Diabetes CAD (coronary artery disease) 3 stents Draper's cyst of knee Primary osteoarthritis of right knee Surgical History H/O hernia repair S/P CABG (coronary artery bypass graft) 2013 Family History Father Cancer Lung cancer Social History Smoking and tobacco/nicotine status: never used tobacco/nicotine Alcohol intake: never Substance/Drug Use: never Physical Exam Const: COMMON NORMALS: no acute distress, patient oriented x3 and no limitations GENERAL APPEARANCE: cooperative and comfortable HENMT: COMMON NORMALS: normocephalic, atraumatic, Normal nasal mucous membranes and turbinates present, moist oral mucous membranes and oropharynx normal HEAD & SCALP: normal to inspection, normocephalic and atraumatic FACE & SINUS: normal facial exam NOSE: Normal nasal mucous membranes and turbinates present Eye: COMMON NORMALS: Equal, round and reactive pupils present, EOMs intact bilaterally and conjunctivae normal GENERAL EYE: appearance normal, both eyes and all related structures CONJUNCTIVA: Yes conjunctivae normal PUPIL: Yes Equal, round and reactive pupils present Neck/C-Spine: COMMON NORMALS: supple and no JVD Chest: COMMONS NORMALS: normal inspection of the chest Resp: COMMON NORMALS: normal respiratory effort and clear to auscultation bilaterally AUSCULTATION: clear to auscultation bilaterally Cardio: COMMON NORMALS: no JVD, regular rate, regular rhythm, No gallops present (Cardio), No murmurs present (Cardio) and No rub (Cardio) RATE: regular rate RHYTHM: regular rhythm GI: COMMON NORMALS: Normal to inspection, nondistended, normoactive bowel sounds present, Soft to palpation and non-tender AUSCULTATION: Yes normoactive bowel sounds PALPATION: Yes Soft to palpation : COMMON NORMALS: Yes no CVA tenderness BLADDER/KIDNEY EXAM: Yes no CVA tenderness Back/Pelvis: COMMON NORMALS: no CVA tenderness and thoracic and lumbar spine normal to inspection Extremity: COMMON NORMALS: normal to inspection Neuro: COMMON NORMALS: patient oriented x3 and CN's II-XII intact bilaterally Psych: COMMON NORMALS: mental status grossly normal, Normal thought process present and cooperative THOUGHT PROCESS: Normal thought process present Skin: COMMON NORMALS: no rashes or lesions noted, turgor normal and no jaundice GENERAL SKIN EXAM: no rashes or lesions noted and turgor normal Course Vital Signs: Vital signs: Vital Signs Temperature 98.1 F 01/30/25 13:51 Pulse Rate 89 01/30/25 20:31 Respiratory Rate 16 01/30/25 13:51 Blood Pressure 131/79 01/30/25 20:31 Pulse Oximetry 94 01/30/25 20:31 Oxygen Delivery Me thod Room Air 01/30/25 20:31 MDM - Syncope Medical Decision Making EKG revealed a paced rhythm. We did have the Medtronic pacemaker interrogated and that interrogation was normal. CBC was normal. CMP revealed a BUN of 41 and creatinine of 1.4. Troponin was 28. BNP 727. CT head was read by the radiologist as nothing acute. Chest x-ray was read by the radiologist as nothing acute. Patient was given a bolus of IV fluids. He remains asymptomatic. Family was reassured. Patient may be somewhat dehydrated and may have had an orthostatic event. Recommended push fluids and get some rest. Follow-up with primary care physician next week for recheck. He was discharged in stable condition. Lab Data 01/30/25 15:24 01/30/25 15:24 Radiology Impressions Chest X-Ray 01/30/25 18:56 IMPRESSION: No acute findings. Head CT 01/30/25 18:56 IMPRESSION: 1. No acute intracranial abnormality. 2. Moderate age-related changes. Laboratory Results WBC 8.05 10^3/uL (3.29-11.43) 01/30/25 15:24 RBC 5.86 10^6/uL (3.85-5.65) H 01/30/25 15:24 Hgb 16.90 g/dL (11.27-16.99) 01/30/25 15:24 Hct 51.0 % (37-53) 01/30/25 15:24 MCV 87.0 fl (82-101) 01/30/25 15:24 MCH 28.8 pg (27-33) 01/30/25 15:24 MCHC 33.1 g/dL (30-55) 01/30/25 15:24 RDW 15.1 % (12.1-15.1) 01/30/25 15:24 Plt Count 231 10^3/cmm (157-399) 01/30/25 15:24 MPV 10.1 fL (7.4-10.4) 01/30/25 15:24 Neut % (Auto) 66.4 % 01/30/25 15:24 Lymph % (Auto) 20.7 % 01/30/25 15:24 Cache % (Auto) 10.6 % 01/30/25 15:24 Eos % (Auto) 1.6 % 01/30/25 15:24 Baso % (Auto) 0.2 % 01/30/25 15:24 Neut # (Auto) 5.34 10^3/uL (1.8-7.7) 01/30/25 15:24 Lymph # (Auto) 1.7 10^3/uL (0.8-4.8) 01/30/25 15:24 Cache # (Auto) 0.9 10^3/uL (0.2-0.9) 01/30/25 15:24 Eos # (Auto) 0.1 10^3/uL (0.0-0.8) 01/30/25 15:24 Baso # (Auto) 0.0 10^3/uL (0.0-0.1) 01/30/25 15:24 Nucleated RBC % (auto) 0 % 01/30/25 15:24 Nucleated RBCs # 0.0 /100WBC 01/30/25 15:24 Sodium 136 mmol/L (136-145) 01/30/25 15:24 Potassium 4.3 mmol/L (3.5-5.1) 01/30/25 15:24 Chloride 101 mmol/L (98-107) 01/30/25 15:24 Carbon Dioxide 23 mmol/L (22-29) 01/30/25 15:24 Anion Gap 16.3 (5-19) 01/30/25 15:24 BUN 41 mg/dL (8-23) H 01/30/25 15:24 Creatinine 1.4 mg/dL (0.7-1.2) H 01/30/25 15:24 GFR Calculation Not Reportable 01/30/25 15:24 Glucose 155 mg/dL (65-115) H 08/20/25 15:24 Calculated Osmolality 295 mOsm/kg (285-295) 01/30/25 15:24 Calcium 9.9 mg/dL (8.5-10.5) 01/30/25 15:24 Total Bilirubin 0.5 mg/dL (0.15-1.2) 01/30/25 15:24 AST 17 U/L (0-40) 01/30/25 15:24 ALT 25 U/L (0-41) 01/30/25 15:24 Alkaline Phosphatase 149 U/L (40-130) H 01/30/25 15:24 Troponin T Baseline 28 ng/L (0-15) H 01/30/25 19:15 NT-Pro-B Natriuret Pep 727 pg/mL (0-450) H 01/30/25 19:15 Total Protein 8.0 g/dL (6.6-8.7) 01/30/25 15:24 Albumin 4.0 g/dL (3.5-5.2) 01/30/25 15:24 Globulin 4.0 g/dL (1.3-4.6) 01/30/25 15:24 All radiology interpretation(s) finalized by discharge Discharge Plan Discharge Patient Disposition: Home Clinical Impression: Syncope Qualifiers: Syncope type: unspecified Qualified Code(s): R55 - Syncope and collapse Condition: Stable Prescriptions: No Action cholecalciferol (vitamin D3) 50 mcg (2,000 unit) capsule 100 mcg PO DAILY insulin glargine-yfgn 100 unit/mL (3 mL) insulin pen 35 unit SUBCUT BID cephalexin 500 mg capsule 500 mg PO TID Qty: 21 0RF glimepiride 4 mg tablet 8 mg PO QAM Rx Instructions: administer with breakfast Jardiance 25 mg tablet 25 mg PO DAILY (DME) diabetic shoes with 3 inserts See Rx Instructions .Route .MEDSUPPLY Qty: 1 0RF Rx Instructions: As directed to the shoe guys melatonin 3 mg capsule 6 mg PO DAILY Ocuvite Adult 50 Plus 250 mg (90 mg-160 mg) capsule 1 cap PO DAILY furosemide 10 mg PO QAM primidone 50 mg Tablet 25 mg PO QAM primidone 50 mg Tablet 100 mg PO QPM atorvastatin 20 mg PO BEDTIME loratadine 10 mg PO DAILY naproxen 500 mg PO BIDWM tamsulosin 0.4 mg PO QPM lisinopril 20 mg Tablet 20 mg PO BID venlafaxine 150 mg Capsule,Extended Release 24hr 150 mg PO DAILY isosorbide mononitrate 60 mg Tablet Extended Release 24 Hr 60 mg PO QAM amlodipine 10 mg Tablet 10 mg PO DAILY finasteride 5 mg Tablet 5 mg PO QPM omega 2-kuw-lxz-fish oil [Fish Oil] 1,000 mg (120 mg-180 mg) Capsule 1 cap PO DAILY mirabegron 50 mg PO BEDTIME Discharge Orders: Discharge ED (Routine); Ordered 01/30/25 Ordered By: Sky Davenport Referrals: Tina Stoddard MD [Primary Care Provider, Family Practice] Discharge Activity: Resume usual activity Patient Instructions: Patient Portal & Jeanette Instructions Activity Restrictions/Additional Instructions: Push fluids and get some rest. Follow-up with primary care provider next week for recheck. Print Language: Khmer Coding Level of Care Code ED Truck Technician for Shellie Diego
[2025-01-30 21:10] VITALS: BP 146/72; PULSE 87; O2SAT 99
== END 2025-01-30 21:26 | disposition home or self-care (01) ==
PROVIDERS: Emergency Medicine; Emergency Provider Emergency Medicine; PCP Family Medicine
DX: R55 Syncope and collapse (principal); Z79.4 Long term (current) use of insulin; E11.9 Type 2 diabetes mellitus without complications; I10 Essential (primary) hypertension; I25.10 Atherosclerotic heart disease of native coronary artery without angina pectoris; Z95.0 Presence of cardiac pacemaker
CPT/HCPCS: 36415; 70450; 71045; 80053; 83880; 84484; 85025; 93005; 99285

== ENCOUNTER → 2025-02-20 15:06 | Outpatient (BNVA) | payer OTHER, SELFPAY | PROVIDERS: PCP Family Medicine; Visit Provider Internal Medicine | DX: I10 Essential (primary) hypertension (principal); Z95.0 Presence of cardiac pacemaker | CPT/HCPCS: 99214 ==

== ENCOUNTER → 2025-03-20 10:27 | Outpatient (BNVA) | payer OTHER, SELFPAY | PROVIDERS: PCP Family Medicine; Visit Provider Podiatrist Foot & Ankle Surgery | DX: E11.42 Type 2 diabetes mellitus with diabetic polyneuropathy (principal); L60.3 Nail dystrophy; L84 Corns and callosities; E11.8 Type 2 diabetes mellitus with unspecified complications; G62.9 Polyneuropathy, unspecified; Z79.4 Long term (current) use of insulin | CPT/HCPCS: 11721 ==